=== PATIENT | female | born 1995 | race Caucasian/White ===

== ENCOUNTER 2022-03-07 12:30 | Outpatient (CLI) | payer OTHER, SELFPAY ==
--- NOTE | ~2022-03-07 | US_ITS ---
EXAMINATION: US OB <= 14 weeks fetus DATE: 03/07/2022 12:50 INDICATION: Establish viability and dating of during first trimester TECHNIQUE: Real-time pelvic ultrasound utilizing both a transvaginal and transabdominal probe was pe rformed. The interpreting radiologist was not present for the study. COMPARISON: None. FINDINGS: The uterus measures 12.3 x 8.6 x 8.3 cm. There is an intrauterine gestational sac. A yolk sac and fe max pole are identified. 1.8 x 1.0 x 0.8 cm hypoechoic subchorionic hematoma along the fundal side of the gestational sac.. heart motion is identified measuring 169 beats per minute (bpm) by M-mod e Doppler. The bilateral ovaries are not visualized. There is no free fluid in the pelvis. IMPRESSION: 1. Single living fetus with heart rate of 169 bpm. 2. Small subchorionic hematoma. Reviewed, dictated and finalized at location B.
== END 2022-03-07 12:31 | disposition home or self-care (01) ==
LOC: CHSIMG 12:33
PROVIDERS: PCP Nurse Practitioner Family; Visit Provider Student in an Organized Health Care Education/Training Program
DX: Z34.90 Encounter for supervision of normal pregnancy, unspecified, unspecified trimester (principal)
CPT/HCPCS: 76801

== ENCOUNTER 2022-04-03 06:13 | Emergency (ER) | payer OTHER, SELFPAY ==
[2022-04-03 06:13] VITALS: BP 127/75; PULSE 112; RESP 20; TEMP 36.3; O2SAT 100
[2022-04-03] MEDS: SODIUM CHLORIDE 0.9% IV 1,000 ML 999 ML IV CONT (06:35)
[2022-04-03] MEDS: ONDANSETRON INJ 4 MG/2 ML VIAL IV PUSH (06:43)
[2022-04-03 06:54] LABS: Basophils Absolute Auto 0.02 K/mm3 (0.00-0.10); Basophils Percent Auto 0.1 % (0.0-1.0); Eosinophils Absolute Auto 0.01 K/mm3 (0.02-0.50); Eosinophils Percent Auto 0.1 % (1.0-6.0); Hemoglobin 14.2 g/dL (12.0-15.0); Immature Granulocyte Absolute 0.05 K/mm3 (0.00-0.00); Immature Granulocyte Percent A 0.4 % (0.0-0.0); Lymphocytes Absolute Auto 0.43 K/mm3 (1.10-4.50); Lymphocytes Percent Auto 3.2 % (18.0-42.0); Mean Corpuscular Hemoglobin 28.7 pg (27.0-31.0); Mean Platelet Volume 10.4 fl (9.2-11.8); Monocytes Absolute Auto 0.38 K/mm3 (0.10-0.90); Monocytes Percent Auto 2.8 % (2.0-11.0); Neutrophils Absolute Auto 12.7 K/mm3 (1.7-7.2); Neutrophils Percent Auto 93.4 % (50.0-70.0); Platelet Count Result 266 K/mm3 (150-420); Red Blood Count 4.94 M/mm3 (4.20-5.40); Red Cell Distribution Width 12.5 % (11.6-14.4); White Blood Count 13.6 K/mm3 (4.8-10.8)
[2022-04-03 06:54] LABS: Add Urine Microscopic? YES; Appearance Urine Slightly Cloudy (Clear); Bilirubin Urine Negative (Negative); Blood Urine Negative (Negative); Color Urine Yellow (Yellow); Glucose Urine UA Negative (Negative); Ketones Urine 3+ (Negative); Leukocyte Esterase Ur Negative (Negative); Nitrate Urine Negative (Negative); Protein Urine Trace (Negative); Specific Grav Ur 1.025 (1.010-1.020); Urobilinogen Urine 0.2 mg/dL (0.2-1.0)
[2022-04-03 07:00] LABS: RBC Urine None seen /hpf (0-2); Squamous Epithelial Cell Urine Moderate /hpf (Few); WBC Urine None seen /hpf (0-3)
[2022-04-03 07:01] LABS: Bacteria Urine 1+ /hpf
[2022-04-03 07:10] LABS: Alanine Aminotransferase 33 U/L (14-59); Albumin Level 3.1 g/dL (3.4-5.0); Alkaline Phosphatase 65 U/L (46-116); Anion Gap 10 mmol/L (8-16); Aspartate Amino Transferase 19 U/L (15-37); Bilirubin,Total 0.6 mg/dL (0.00-1.00); Blood Urea Nitrogen 8 mg/dL (7-18); Calcium 9.2 mg/dL (8.5-10.1); Carbon Dioxide 23 mmol/L (21-32); Chloride 102 mmol/L (98-108); Estimated CRCL calculation 109 ml/min; Estimated Glomerular Filt Rate > 60; Glucose 118 mg/dL (70-99); Lipase 89 U/L (73-393); Osmolality Calculated 279 mOsm/kg (285-295); Sodium 135 mmol/L (136-145); Total Protein 7.5 g/dL (6.4-8.2)
--- NOTE | 2022-04-03 07:10 | PC.NURSE ---
RN gave report to Kayla DIXON with pt's NSS running with approximately 300mL left.
--- NOTE | 2022-04-03 07:30 | PC.NURSE ---
iv fluids finished infusing at this time.
--- NOTE | 2022-04-03 07:33 | ED.NAVMDI ---
HPI - Nausea/Vomiting/Diarrhea General Chief complaint: Nausea/Vomiting/Diarrhea Stated complaint: Vomiting/preg Time Seen by Provider: 04/03/22 07:29 History of Present Illness HPI Narrative: 27-year-old female with a history of anxiety / depression, 1st at 16 weeks presents to the ER with a 1 day history of -- nausea with multiple episodes of vomiting. -- Three episodes of diarrhea since this morning. No fever. No abdominal pain. MD elicited complaint: nausea, vomiting and diarrhea Pertinent past history: anorexia Onset (ago): hour(s) ( Started 12 hours ago) Description of vomiting: watery Description of diarrhea: watery Associated nausea: Yes Associated abdominal pain: No Exacerbating factors: none Relieving factors: none Associated symptoms: denies other symptoms Treatment prior to arrival: other ( Zofran) Related Data Allergies Allergy/AdvReac Type Severity Reaction Status Date / Time No Known Allergies Allergy Unknown Verified 04/03/22 07:01 Review of Systems Review of Systems: All systems reviewed & are unremarkable except as noted in HPI and below Constitutional: Constitutional: Reports as per HPI and Reports no additional constitutional complaints Eyes: Eyes: Reports as per HPI and Reports no additional eye complaints ENT: Reports system reviewed and no additional complaints, except as documented and Reports as per HPI Cardiovascular: Cardiovascular: Reports as per HPI and Reports no additional cardiovascular complaints Respiratory: Respiratory: Reports as per HPI and Reports no additional respiratory complaints Gastrointestinal: Gastrointestinal: Reports as per HPI, Reports no additional gastrointestinal complaints, Reports diarrhea, Reports nausea and Reports vomiting Genitourinary: Genitourinary: Reports no additional female genitourinary complaints Musculoskeletal: Musculoskeletal: Reports no additional musculoskeletal complaints Integumentary/Breasts: Skin/Breast: Reports system reviewed and no additional complaints, except as docu and Reports as per HPI Neurologic: Reports system reviewed and no additional complaints, except as documented and Reports as per HPI Psychiatric: Psychiatric: Reports no additional psychiatric complaints and Reports as per HPI Endocrine: Endocrine: Reports no additional endocrine complaints and Reports as per HPI Hematologic/Lymphatic: Hematologic/Lymphatic: Reports no additional hematologic/lymphatic complaints and Reports as per HPI Allergic/Immunologic: Allergic/Immunologic: Reports no additional allergic/immunologic complaints and Reports as per HPI PMF Past Medical History Medical History Anxiety with depression URI (upper respiratory infection) Surgical History Surgical History No significant past surgical history Social History Social History Smoking status: Never smoker Alcohol intake: never Substance use: never Substance use type: does not use Additional occupation/education comments: goes to [employer] Gender identity (if verbalized by the patient): Female Spiritual care concerns: No Exam Const: General: no acute distress and alert Orientation/consciousness: patient oriented x3 HENMT: Head: normal to inspection Eyes: Cornea: corneas normal Pupils: Equal, round and reactive pupils present EOM: EOMs intact bilaterally Neck: Neck: normal visual inspection, no lymphadenopathy and no meningeal signs Chest: Chest palpation & inspection: normal inspection of the chest Resp: Effort & Inspection: normal respiratory effort Auscultation: clear to auscultation bilaterally Cardio: Rate: regular rate Rhythm: regular rhythm GI: GI Palp: Yes Soft to palpation Other: no tenderness/ rigidity /rebound. heart sounds- 153 per minute G
[2022-04-03] MEDS: METOCLOPRAMIDE HCL INJ 10 MG/2 ML VIAL IV PUSH (07:51)
[2022-04-03 08:37] VITALS: BP 124/74; PULSE 105; RESP 16; TEMP 36.9; O2SAT 100
== END 2022-04-03 08:38 | disposition home or self-care (01) ==
PROVIDERS: Emergency Medicine; Emergency Provider Internal Medicine Critical Care Medicine; PCP Nurse Practitioner Family
DX: R11.10 Vomiting, unspecified (principal); Z33.1 Pregnant state, incidental; K52.9 Noninfective gastroenteritis and colitis, unspecified
CPT/HCPCS: 36415; 80053; 81001; 83690; 85025; 96361; 96374; 96375; 99284; J2405; J2765; J7030

== ENCOUNTER 2022-05-06 14:04 | Outpatient (CLI) | payer BC, SELFPAY ==
[2022-05-06 14:31] LABS: Basophils Absolute Auto 0.03 K/mm3 (0.00-0.10); Basophils Percent Auto 0.3 % (0.0-1.0); Eosinophils Absolute Auto 0.15 K/mm3 (0.02-0.50); Eosinophils Percent Auto 1.4 % (1.0-6.0); Hemoglobin 12.2 g/dL (12.0-15.0); Immature Granulocyte Absolute 0.11 K/mm3 (0.00-0.00); Lymphocytes Percent Auto 15.3 % (18.0-42.0); Mean Corpuscular Hemoglobin 29.1 pg (27.0-31.0); Mean Corpuscular Volume 88.3 fL (78.0-102.0); Mean Platelet Volume 10.3 fl (9.2-11.8); Monocytes Absolute Auto 0.71 K/mm3 (0.10-0.90); Monocytes Percent Auto 6.4 % (2.0-11.0); Neutrophils Absolute Auto 8.4 K/mm3 (1.7-7.2); Neutrophils Percent Auto 75.6 % (50.0-70.0); Platelet Count Result 282 K/mm3 (150-420); Red Blood Count 4.19 M/mm3 (4.20-5.40); Red Cell Distribution Width 12.7 % (11.6-14.4); White Blood Count 11.1 K/mm3 (4.8-10.8)
[2022-05-06 15:38] LABS: Thyroid Stimulating Hormone 0.48 uIU/mL (0.36-3.74)
[2022-05-09 13:04] LABS: Hepatitis C Signal to Cutoff 0.01 ratio (<1.00); Hepatitis C Virus Antibody Nonreactive (Nonreactive)
[2022-05-09 13:31] LABS: Vitamin D 25 Hydroxy 30 ng/mL (30-100)
[2022-05-09 14:49] LABS: RPR Screen Non-Reactive (Non-Reactive)
[2022-05-09 15:55] LABS: Hematocrit 37.9 % (35.0-45.0); Hemoglobin 12.1 g/dL (11.7-15.5); MCH 28.3 pg (27.0-33.0); MCV 88.6 fL (80.0-100.0); RDW 12.7 % (11.0-15.0); Red Blood Cell Count 4.28 Mill/uL (3.80-5.10)
[2022-05-19 18:36] LABS: CF Result NEGATIVE (NEGATIVE); Ethnicity CAUCASIAN
== END 2022-05-06 14:05 | disposition home or self-care (01) ==
LOC: CHSLAB 14:08
PROVIDERS: PCP Nurse Practitioner Family; Visit Provider Student in an Organized Health Care Education/Training Program
DX: Z34.90 Encounter for supervision of normal pregnancy, unspecified, unspecified trimester (principal)
CPT/HCPCS: 36415; 81220; 81243; 82306; 83021; 84443; 85025; 86592; 86787; 86850; 86900; 86901; 87086; 87088

== ENCOUNTER 2022-05-23 12:36 | Outpatient (CLI) | payer BC, SELFPAY ==
[2022-05-23 13:04] LABS: Add Urine Microscopic? YES; Appearance Urine Clear (Clear); Bilirubin Urine Negative (Negative); Blood Urine Negative (Negative); Color Urine Yellow (Yellow); Glucose Urine UA Negative (Negative); Ketones Urine Negative (Negative); Leukocyte Esterase Ur Negative LEU/UL (Negative); Nitrate Urine Negative (Negative); Protein Urine Trace (Negative); Specific Grav Ur >= 1.030 (1.010-1.020)
[2022-05-23 13:09] LABS: RBC Urine 0-2 /hpf (0-2); Squamous Epithelial Cell Urine Many /hpf (Few); WBC Urine 0-3 /hpf (0-3)
[2022-05-23 13:10] LABS: Bacteria Urine 1+ /hpf; Mucus Urine Few /lpf
[2022-05-23 13:32] LABS: Alanine Aminotransferase 22 U/L (14-59); Albumin Level 2.9 g/dL (3.4-5.0); Alkaline Phosphatase 76 U/L (46-116); Anion Gap 10 mmol/L (8-16); Aspartate Amino Transferase 19 U/L (15-37); Bilirubin,Total 0.3 mg/dL (0.00-1.00); Blood Urea Nitrogen 6 mg/dL (7-18); Calcium 9.2 mg/dL (8.5-10.1); Carbon Dioxide 22 mmol/L (21-32); Chloride 105 mmol/L (98-108); Estimated Glomerular Filt Rate > 60; Glucose 94 mg/dL (70-99); Lactate Dehydrogenase 149 U/L (81-234); Osmolality Calculated 281 mOsm/kg (285-295); Potassium 3.8 mmol/L (3.5-5.1); Sodium 137 mmol/L (136-145); Total Protein 6.6 g/dL (6.4-8.2); Uric Acid 3.5 mg/dL (2.6-6.0)
[2022-05-23 13:40] LABS: HIV 1 P24 AG Negative (Negative); HIV 1/2 AB Negative (Negative)
[2022-05-30 12:16] LABS: Hepatitis B Surface Antigen Nonreactive (Nonreactive)
== END 2022-05-23 12:37 | disposition home or self-care (01) ==
LOC: CHSLAB 12:38
PROVIDERS: PCP Nurse Practitioner Family; Visit Provider Student in an Organized Health Care Education/Training Program
DX: O16.2 Unspecified maternal hypertension, second trimester (principal)
CPT/HCPCS: 36415; 80053; 81001; 83615; 84550; 86703

== ENCOUNTER 2022-05-29 08:47 | Observation (INO) | payer BC, SELFPAY ==
[2022-05-29 09:25] VITALS: RESP 18; TEMP 36.5; BMI 37.1
[2022-05-29 09:26] VITALS: BP 111/65; PULSE 84; TEMP 36.5
[2022-05-29 09:42] LABS: Appearance Urine Clear (Clear); Bilirubin Urine Negative (Negative); Blood Urine Negative (Negative); Color Urine Yellow (Yellow); Glucose Urine UA Negative (Negative); Ketones Urine Negative (Negative); Leukocyte Esterase Ur Negative LEU/UL (Negative); Nitrate Urine Negative (Negative); Protein Urine Negative (Negative); Urobilinogen Urine 0.2 mg/dL (<2.0); pH Urine 7.5 (5.0-9.0)
[2022-05-29 09:44] LABS: Add Urine Microscopic? NO
--- NOTE | 2022-05-29 09:47 | OBADM ---
This patient, Kevyn Trevizo, admitted to the OB room 116 at 0847 for observation for lower abdominal cramping. Patient/family oriented to hospital policies and general routines including ID bracelet, bed and alarms, visiting hours, pain management, procedures, bathroom and other care routines, personal items, smoking policy, room service/diet, and visiting hours. Patient/Family are encouraged to report perceived risks to care and to ask questions if they do not understand what they are told or what they should do.
[2022-05-29 10:31] VITALS: BP 115/73; PULSE 89
[2022-05-29 11:01] VITALS: BP 114/61; PULSE 93
--- NOTE | 2022-05-29 18:56 | PC.NURSE ---
Dr. Muniz informed of pt's arrival with c/o cramping on and off for the last 3 weeks, but it woke her at 0400 this morning. Denies vaginal bleeding or leakage of fluid. FHT's with 10 beat accels at 24 wks gestation. Uterine irritability noted. Pt's pain has decreased with PO hydration, rest, and keeping bladder empty. Orders received.
--- NOTE | 2022-06-15 16:42 | P.PNOB_ITS ---
OB - Triage/Final Diagnosis Visit Information Comments/Additional reasons for admission: I have assessed the risk for this patient, Kevyn Slater, and determined that she would benefit from observation care. Evaluation Laboratory results: Laboratory Tests 05/29/22 09:24 Urine Color Yellow Urine Appearance Clear Urine pH 7.5 Ur Specific Penelope 1.020 Urine Protein Negative Urine Glucose (UA) Negative Urine Ketones Negative Ur Blood (Man) Negative Urine Nitrate Negative Urine Bilirubin Negative Urine Urobilinogen 0.2 Leukocyte Esterase Rfl Negative Final Diagnosis (1) Cramping affecting , antepartum: Code(s): O26.899 - Other specified related conditions, unspecified trimester; R10.9 - Unspecified abdominal pain Status: Acute
== END 2022-05-29 11:49 | disposition home or self-care (01) ==
PROVIDERS: Admitting Provider Student in an Organized Health Care Education/Training Program; PCP Nurse Practitioner Family; Visit Provider Student in an Organized Health Care Education/Training Program
DX: O26.892 Other specified pregnancy related conditions, second trimester (principal); R10.9 Unspecified abdominal pain; Z3A.24 24 weeks gestation of pregnancy
CPT/HCPCS: 81003; G0378; G0379

== ENCOUNTER 2022-06-17 13:14 | Outpatient (CLI) | payer BC, SELFPAY ==
[2022-06-17 14:56] LABS: Basophils Absolute Auto 0.1 K/mm3 (0.0-0.1); Basophils Percent Auto 0.3 % (0.2-1.2); Eosinophils Absolute Auto 0.1 K/mm3 (0-0.3); Eosinophils Percent Auto 0.7 % (0-4.4); Hematocrit 36.1 % (37.0-47.0); Hemoglobin 12.2 g/dL (12.0-15.0); Immature Granulocyte Absolute 0.26 K/mm3 (0.00-0.031); Immature Granulocyte Percent A 1.7 % (0-0.5); Lymphocytes Absolute Auto 1.77 K/mm3 (0.9-3.2); Lymphocytes Percent Auto 11.7 % (18.3-44.2); Mean Corpuscular HGB Conc 33.8 g/dl (32-36); Mean Corpuscular Hemoglobin 29.6 pg (26-34); Mean Corpuscular Volume 87.6 fl (80-100); Mean Platelet Volume 10.3 fl (7.4-10.4); Monocytes Absolute Auto 0.9 K/mm3 (0.1-0.6); Monocytes Percent Auto 6.2 % (2.6-8.5); Neutrophils Percent Auto 79.4 % (45.5-73.1); Platelet Count Result 289 k/mm3 (150-375); Red Blood Count 4.12 M/mm3 (4.2-5.4); Red Cell Distribution Width 13.2 % (11.5-14.5); White Blood Count 15.1 K/mm3 (4.5-10.0)
[2022-06-17 15:08] LABS: Glucose 1 Hour PP 50gm Dose 104 mg/dL
[2022-06-17 16:34] LABS: Rubella IgG Antibody 8.8 IU/ML
[2022-06-19] MEDS: RHO(D) IMMUNE GLOBULIN 300 MCG/2 ML SYRINGE IM (14:49)
== END 2022-06-17 13:15 | disposition home or self-care (01) ==
LOC: ANHLAB 13:15
PROVIDERS: PCP Nurse Practitioner Family; Visit Provider Student in an Organized Health Care Education/Training Program
DX: Z34.02 Encounter for supervision of normal first pregnancy, second trimester (principal)
CPT/HCPCS: 36415; 82947; 85025; 85461; 86762; 86850; 86900; 86901; 87086; 90384; 96372; J2790

== ENCOUNTER 2022-08-16 15:39 | Outpatient (CLI) | payer SELFPAY ==
[2022-08-16 15:52] LABS: Basophils Absolute Auto 0.05 K/mm3 (0.00-0.10); Basophils Percent Auto 0.4 % (0.0-1.0); Eosinophils Absolute Auto 0.14 K/mm3 (0.02-0.50); Hematocrit 35.2 % (35.0-49.0); Hemoglobin 11.3 g/dL (12.0-15.0); Immature Granulocyte Absolute 0.24 K/mm3 (0.00-0.00); Immature Granulocyte Percent A 1.8 % (0.0-0.0); Lymphocytes Absolute Auto 1.71 K/mm3 (1.10-4.50); Lymphocytes Percent Auto 12.6 % (18.0-42.0); Mean Corpuscular HGB Conc 32.1 g/dL (32.0-36.0); Mean Corpuscular Hemoglobin 28.3 pg (27.0-31.0); Mean Platelet Volume 10.5 fl (9.2-11.8); Monocytes Absolute Auto 0.97 K/mm3 (0.10-0.90); Monocytes Percent Auto 7.1 % (2.0-11.0); Neutrophils Absolute Auto 10.5 K/mm3 (1.7-7.2); Neutrophils Percent Auto 77.1 % (50.0-70.0); Platelet Count Result 265 K/mm3 (150-420); White Blood Count 13.6 K/mm3 (4.8-10.8)
[2022-08-16 16:44] LABS: HIV 1 P24 AG Negative (Negative); HIV 1/2 AB Negative (Negative)
[2022-08-19 17:43] LABS: RPR Screen Non-Reactive (Non-Reactive)
== END 2022-08-16 15:40 | disposition home or self-care (01) ==
LOC: CHSLAB 15:42
PROVIDERS: PCP Nurse Practitioner Family; Visit Provider Student in an Organized Health Care Education/Training Program
DX: Z34.03 Encounter for supervision of normal first pregnancy, third trimester (principal)
CPT/HCPCS: 36415; 85025; 86592; 86703

== ENCOUNTER 2022-08-31 19:28 | Observation (INO) | payer SELFPAY ==
[2022-08-31] VITALS (8 sets, daily range): BP systolic 109–150; BP diastolic 56–93; PULSE 89–103; BMI 36.6
[2022-08-31 21:03] LABS: Basophils Absolute Auto 0.1 K/mm3 (0.0-0.1); Basophils Percent Auto 0.4 % (0.2-1.2); Eosinophils Absolute Auto 0.2 K/mm3 (0-0.3); Eosinophils Percent Auto 1.6 % (0-4.4); Hematocrit 35.8 % (37.0-47.0); Hemoglobin 11.5 g/dL (12.0-15.0); Immature Granulocyte Absolute 0.17 K/mm3 (0.00-0.031); Immature Granulocyte Percent A 1.4 % (0-0.5); Lymphocytes Absolute Auto 1.61 K/mm3 (0.9-3.2); Mean Corpuscular HGB Conc 32.1 g/dl (32-36); Mean Corpuscular Hemoglobin 28.4 pg (26-34); Mean Corpuscular Volume 88.4 fl (80-100); Mean Platelet Volume 10.1 fl (7.4-10.4); Monocytes Percent Auto 8.2 % (2.6-8.5); Neutrophils Absolute Auto 9.4 K/mm3 (1.3-6.7); Neutrophils Percent Auto 75.4 % (45.5-73.1); Platelet Count Result 256 k/mm3 (150-375); Red Blood Count 4.05 M/mm3 (4.2-5.4); Red Cell Distribution Width 13.3 % (11.5-14.5); White Blood Count 12.4 K/mm3 (4.5-10.0)
[2022-08-31 21:04] LABS: Appearance Urine Clear (Clear); Bilirubin Urine Negative (Negative); Blood Urine Negative (Negative); Color Urine Yellow (Yellow); Glucose Urine UA Negative (Negative); Ketones Urine Negative (Negative); Leukocyte Esterase Ur Negative LEU/UL (NEGATIVE); Nitrate Urine Negative (Negative); Protein Urine Negative (Negative); Urobilinogen Urine 0.2 mg/dL (<2.0); pH Urine 6.5 (5.0-9.0)
[2022-08-31 21:07] LABS: Add Urine Microscopic? NO; Bacteria Urine Trace /hpf; RBC Urine 0-2 /hpf (0-2); Squamous Epithelial Cell Urine Occasional /hpf (Few); WBC Urine 0-3 /hpf (0-3)
[2022-08-31 21:10] LABS: Creatinine Urine 45.6 mg/dL
[2022-08-31 21:12] LABS: Alanine Aminotransferase 18 U/L (6-35); Albumin Level 3.8 g/dL (3.5-5.1); Alkaline Phosphatase 168 U/L (38-126); Anion Gap 9 mmol/L (8-16); Aspartate Amino Transferase 19 U/L (14-36); Bilirubin,Total 0.4 mg/dL (0.2-1.3); Blood Urea Nitrogen 5 mg/dL (7-17); Calcium 9.1 mg/dL (8.4-10.2); Carbon Dioxide 22 mmol/L (22-30); Chloride 107 mmol/L (98-107); Estimated Glomerular Filt Rate > 60; Glucose 91 mg/dL (65-110); Potassium 3.5 mmol/L (3.4-5.0); Sodium 138 mmol/L (137-145); Uric Acid 3.4 mg/dL (2.5-7.5)
[2022-08-31 22:17] LABS: Total Protein Urine Random 13 mg/dL; Ur Ttl Prot Creatinine Ratio 0.29 mg/mg (0-0.20)
--- NOTE | 2022-08-31 22:26 | OBADM ---
This patient, Kevyn Slater, admitted to the OB room Labor/Delivery/Recovery 106 for observation. Patient/family oriented to hospital policies and general routines including ID bracelet, bed and alarms, visiting hours, pain management, procedures, bathroom and other care routines, personal items, smoking policy, room service/diet, and visiting hours. Patient/Family are encouraged to report perceived risks to care and to ask questions if they do not understand what they are told or what they should do.
--- NOTE | 2022-10-02 10:20 | PM.OBTRLD ---
OB - Triage/Final Diagnosis Visit Information Comments/Additional reasons for admission: I have assessed the risk for this patient, Kevyn Slater, and determined that she would benefit from observation care. Evaluation Laboratory results: Laboratory Tests 08/31/22 08/31/22 08/31/22 20:48 20:48 20:48 WBC 12.4 H RBC 4.05 L Hgb 11.5 L Hct 35.8 L MCV 88.4 MCH 28.4 MCHC 32.1 RDW 13.3 Plt Count 256 MPV 10.1 Immature Gran % (Auto) 1.4 H Neut % (Auto) 75.4 H Lymph % (Auto) 13.0 L [place] % (Auto) 8.2 Eos % (Auto) 1.6 Baso % (Auto) 0.4 Lymph # (Auto) 1.61 [place] # (Auto) 1.0 H Eos # (Auto) 0.2 Baso # (Auto) 0.1 Abs Immat Gran (auto) 0.17 H Absolute Neuts (auto) 9.4 H Absolute Nucleated RBC 0.0 Nucleated RBC % 0.0 Sodium Potassium Chloride Carbon Dioxide Anion Gap BUN Creatinine Estim Creat Clear Calc Estimated GFR Glucose Uric Acid Calcium Total Bilirubin AST ALT Alkaline Phosphatase Total Protein Albumin Urine Color Yellow Urine Appearance Clear Urine pH 6.[address] [place] 1.010 Urine Protein Negative Urine Glucose (UA) Negative Urine Ketones Negative Ur Blood (Man) Negative Urine Nitrate Negative Urine Bilirubin Negative Urine Urobilinogen 0.2 Ur Leukocyte Esterase Negative Urine RBC 0-2 Urine WBC 0-3 Ur Squamous Epith Cells Occasional Urine Bacteria Trace U Random Total Protein 13 Urine Creatinine 45.6 Protein/Creat Ratio 2 0.29 H 08/31/22 20:48 WBC RBC Hgb Hct MCV MCH MCHC RDW Plt Count MPV Immature Gran % (Auto) Neut % (Auto) Lymph % (Auto) [place] % (Auto) Eos % (Auto) Baso % (Auto) Lymph # (Auto) [place] # (Auto) Eos # (Auto) Baso # (Auto) Abs Immat Gran (auto) Absolute Neuts (auto) Absolute Nucleated RBC Nucleated RBC % Sodium 138 Potassium 3.5 Chloride 107 Carbon Dioxide 22 Anion Gap 9 BUN 5 L Creatinine 0.60 L Estim Creat Clear Calc Not Reportable Estimated GFR > 60 Glucose 91 Uric Acid 3.4 Calcium 9.1 Total Bilirubin 0.4 AST 19 ALT 18 Alkaline Phosphatase 168 H Total Protein 7.0 Albumin 3.8 Urine Color Urine Appearance Urine pH Ur Specific [place] Urine Protein Urine Glucose (UA) Urine Ketones Ur Blood (Man) Urine Nitrate Urine Bilirubin Urine Urobilinogen Ur Leukocyte Esterase Urine RBC Urine WBC Ur Squamous Epith Cells Urine Bacteria U Random Total Protein Urine Creatinine Protein/Creat Ratio 2 Final Diagnosis (1) False labor: Code(s): O47.9 - False labor, unspecified Status: Acute
== END 2022-08-31 22:45 | disposition home or self-care (01) ==
PROVIDERS: Admitting Provider Student in an Organized Health Care Education/Training Program; PCP Nurse Practitioner Family; Visit Provider Obstetrics & Gynecology
DX: O9A.219 Injury, poisoning and certain other consequences of external causes complicating pregnancy, unspecified trimester (principal); Z3A.00 Weeks of gestation of pregnancy not specified; R10.9 Unspecified abdominal pain; T14.90XA Injury, unspecified, initial encounter
CPT/HCPCS: 36415; 80053; 81003; 82570; 84156; 84550; 85025; 87086; 87088; G0378; G0379

== ENCOUNTER 2022-09-01 20:21 | Outpatient (NON) | payer SELFPAY ==
[2022-09-01 20:27] VITALS: BMI 36.6
[2022-09-01 20:46] LABS: Total Volume 24 Hour Urine 1400 ml
[2022-09-01 20:47] LABS: Total Volume 24 Hour Urine 1400 ml
[2022-09-01 20:53] LABS: Total Protein Urine 24 Hr 126 mg/24hr (28-141); Total Protein Urine Random 9 mg/dL
[2022-09-01 20:55] LABS: Creatinine 24 Hour Urine 1.2 gm/24 (0.8-1.8); Creatinine Urine 88.3 mg/dL
== END 2022-09-01 20:22 | disposition home or self-care (01) ==
LOC: ANHOBOP 20:22
PROVIDERS: Student in an Organized Health Care Education/Training Program; PCP Nurse Practitioner Family; Visit Provider Obstetrics & Gynecology
DX: O16.2 Unspecified maternal hypertension, second trimester (principal); Z3A.00 Weeks of gestation of pregnancy not specified
CPT/HCPCS: 81050; 82570; 84156

== ENCOUNTER 2022-09-06 15:28 | Outpatient (CLI) | payer BC, SELFPAY ==
[2022-09-06 16:30] VITALS: BP 114/76; PULSE 93
== END 2022-09-06 16:30 | disposition home or self-care (01) ==
LOC: ANHOBOP 16:26 → ANHLDR 16:32
PROVIDERS: PCP Nurse Practitioner Family; Visit Provider Student in an Organized Health Care Education/Training Program
DX: O41.8X90 Other specified disorders of amniotic fluid and membranes, unspecified trimester, not applicable or unspecified (principal); Z3A.00 Weeks of gestation of pregnancy not specified
CPT/HCPCS: 59025; 84112; 99199

== ENCOUNTER 2022-09-09 16:27 | Inpatient (IN) | payer BC, SELFPAY ==
[2022-09-09] VITALS (11 sets, daily range): BP systolic 109–151; BP diastolic 67–104; PULSE 90–113; TEMP 36.4–36.7; BMI 38.4
--- NOTE | 2022-09-09 17:14 | LDADM ---
This patient, Kevyn Slater, was admitted to Labor/Delivery/Recovery 104 on 09/09/22 at 16:27. Plans for labor, pain management and were discussed with patient. Patient/family oriented to hospital policies and general routines including ID bracelet, bed and alarms, visiting hours, pain management, procedures, bathroom and other care routines, personal items, smoking policy, room service/diet and guest tray routines, security routines, and visiting hours. Patient/Family are encouraged to report perceived risks to care and to ask questions if they do not understand what they are told or what they should do. See OBIX for further documentation.
[2022-09-09 17:48] LABS: Basophils Percent Auto 0.2 % (0.2-1.2); Eosinophils Absolute Auto 0.1 K/mm3 (0-0.3); Eosinophils Percent Auto 0.7 % (0-4.4); Hematocrit 38.5 % (37.0-47.0); Hemoglobin 12.5 g/dL (12.0-15.0); Immature Granulocyte Absolute 0.16 K/mm3 (0.00-0.031); Immature Granulocyte Percent A 1.1 % (0-0.5); Lymphocytes Absolute Auto 1.57 K/mm3 (0.9-3.2); Lymphocytes Percent Auto 11.2 % (18.3-44.2); Mean Corpuscular HGB Conc 32.5 g/dl (32-36); Mean Corpuscular Hemoglobin 28.2 pg (26-34); Mean Corpuscular Volume 86.7 fl (80-100); Mean Platelet Volume 10.6 fl (7.4-10.4); Monocytes Absolute Auto 0.8 K/mm3 (0.1-0.6); Monocytes Percent Auto 5.8 % (2.6-8.5); Neutrophils Absolute Auto 11.4 K/mm3 (1.3-6.7); Platelet Count Result 274 k/mm3 (150-375); Red Blood Count 4.44 M/mm3 (4.2-5.4); Red Cell Distribution Width 13.8 % (11.5-14.5); White Blood Count 14.1 K/mm3 (4.5-10.0)
--- NOTE | 2022-09-09 18:18 | WPDANESEPP ---
Anes - Eval Pre Procedure Procedure: LAbor epidural Date/Time: 09/09/22 18:18 Surgeon: Flavio Preop Diagnosis: Abd pain with contractions Pre Op Diagnosis: Induction of Labor Patient Data Age: 27 Gender: F Height: 1.68 m Weight: 108 kg Last Vital Signs Pulse 100 09/09/22 18:16 BP 146/88 H 09/09/22 18:16 O2 Del Method Room Air 09/09/22 17:12 Allergies Allergy/AdvReac Type Severity Reaction Status Date / Time No Known Allergies Allergy Unknown Verified 09/04/22 14:11 Home Medications Medication Instructions Recorded Confirmed Type vit no.95-ferrous 1 tablet PO DAILY 05/29/22 09/09/22 History fumarate 28 mg-folic acid 800 mcg tablet () Laboratory Tests 09/09/22 09/09/22 17:09 17:10 WBC 14.1 K/mm3 H K/mm3 (4.5-10.0) RBC 4.44 M/mm3 M/mm3 (4.2-5.4) Hgb 12.5 g/dL g/dL (12.0-15.0) Hct 38.5 % % (37.0-47.0) MCV 86.7 fl fl (80-100) MCH 28.2 pg pg (26-34) MCHC 32.5 g/dl g/dl (32-36) RDW 13.8 % % (11.5-14.5) Plt Count 274 k/mm3 k/mm3 (150-375) MPV 10.6 fl H fl (7.4-10.4) Immature Gran % (Auto) 1.1 % H % (0-0.5) Neut % (Auto) 81.0 % H % (45.5-73.1) Lymph % (Auto) 11.2 % L % (18.3-44.2) Elliott % (Auto) 5.8 % % (2.6-8.5) Eos % (Auto) 0.7 % % (0-4.4) Baso % (Auto) 0.2 % % (0.2-1.2) Lymph # (Auto) 1.57 K/mm3 K/mm3 (0.9-3.2) Elliott # (Auto) 0.8 K/mm3 H K/mm3 (0.1-0.6) Eos # (Auto) 0.1 K/mm3 K/mm3 (0-0.3) Baso # (Auto) 0.0 K/mm3 K/mm3 (0.0-0.1) Abs Immat Gran (auto) 0.16 K/mm3 H K/mm3 (0.00-0.031) Absolute Neuts (auto) 11.4 K/mm3 H K/mm3 (1.3-6.7) Absolute Nucleated RBC 0.0 K/mm3 K/mm3 (0.0-0.012) Nucleated RBC % 0.0 % % (0.0-0.2) RPR Pending Patient hx anesthesia problems: none Family hx anesthesia problems: none Results Review: All pre-operative results and documents have been reviewed as part of the pre-operative evaluation. [facility] Past Medical History Medical History Anxiety with depression Chlamydia contact, treated Migraines Morbid obesity and not yet delivered URI (upper respiratory infection) Surgical History Surgical History No significant past surgical history Family History Family History Other Patient denies significant medical history Social History Social History Smoking status: Never smoker Alcohol intake: never Substance use: never Substance use type: does not use Additional occupation/education comments: goes to [employer] Gender identity (if verbalized by the patient): Female Spiritual care concerns: No Exam Day of Procedure 09/09/22 18:18 Patient weight: morbidly obese Airway: Mallampati scale class II
[2022-09-09] MEDS: DINOPROSTONE 10 MG VAG INSERT VAGINAL (18:29)
[2022-09-10] VITALS (184 sets, daily range): BP systolic 99–168; BP diastolic 43–114; PULSE 71–157; RESP 18; TEMP 36.2–37.2; O2SAT 96–100
[2022-09-10] MEDS: ONDANSETRON INJ 4 MG/2 ML VIAL IV PUSH ×2 (03:36→09:18)
[2022-09-10] MEDS: LACTATED RINGERS 1,000 ML 125 ML IV CONT ×3 (07:08→12:17)
[2022-09-10] MEDS: OXYTOCIN 30 UNITS/NS 500 ML 30 UNITS/500 ML BAG 6 UNITS IV CONT (07:08)
[2022-09-10 09:21] LABS: Rapid Plasma Reagin Non-Reactive (NonReactive)
--- NOTE | 2022-09-10 10:07 | PM.IMHP ---
H&P: HPI History of Present Illness Date/Time: 09/10/22 10:07 Chief Complaint: elective induction of labor Narrative: Patient is a 27-year-old LMP 12/10/2021 currently 39 weeks 1 day gestation with NELL 09/16/2022 who presented to labor and delivery on the evening of 09/09/2022 at 39 weeks gestation for scheduled elective induction of labor. In general, patient doing well. Reports occasional contractions. Denies any vaginal bleeding or leakage of fluid. Reports good movement. Review of Systems Review of Systems: All systems reviewed & are unremarkable except as noted in HPI and below Constitutional: Constitutional: Reports as per HPI and Reports no additional constitutional complaints Eyes: Eyes: Reports no additional eye complaints ENT: Reports system reviewed and no additional complaints, except as documented and Reports as per HPI Cardiovascular: Cardiovascular: Reports as per HPI and Reports no additional cardiovascular complaints Respiratory: Respiratory: Reports as per HPI and Reports no additional respiratory complaints Gastrointestinal: Gastrointestinal: Reports as per HPI and Reports no additional gastrointestinal complaints Genitourinary: Genitourinary: Reports no additional female genitourinary complaints and Reports as per HPI Musculoskeletal: Musculoskeletal: Reports no additional musculoskeletal complaints and Reports as per HPI Integumentary/Breasts: Skin/Breast: Reports system reviewed and no additional complaints, except as docu and Reports as per HPI Neurologic: Reports system reviewed and no additional complaints, except as documented and Reports as per HPI Psychiatric: Psychiatric: Reports no additional psychiatric complaints and Reports as per HPI Endocrine: Endocrine: Reports no additional endocrine complaints and Reports as per HPI Hematologic/Lymphatic: Hematologic/Lymphatic: Reports no additional hematologic/lymphatic complaints and Reports as per HPI Allergic/Immunologic: Allergic/Immunologic: Reports no additional allergic/immunologic complaints and Reports as per HPI PMFSH Past Medical History Medical History Anxiety with depression Chlamydia contact, treated Migraines Morbid obesity and not yet delivered URI (upper respiratory infection) Surgical History Surgical History No significant past surgical history Family History Family History Other Patient denies significant medical history Social History Social History Smoking status: Never smoker Alcohol intake: never Substance use: never Substance use type: does not use Additional occupation/education comments: goes to [employer] Gender identity (if verbalized by the patient): Female Spiritual care concerns: No Meds Home Medications and Allergies Home Medications Medication Instructions Recorded Confirmed Type vit no.95-ferrous 1 tablet PO DAILY 05/29/22 09/09/22 History fumarate 28 mg-folic acid 800 mcg tablet () Allergies Allergy/AdvReac Type Severity Reaction Status Date / Time No Known Allergies Allergy Unknown Verified 09/04/22 14:11 Vital Signs Vital Signs - 24 hr 09/09/22 17:08 09/09/22 17:15 09/09/22 17:46 Temperature Pulse Rate 90 101 H 97 Blood Pressure 125/85 120/76 136/87 Pulse Oximetry Oxygen Delivery 09/09/22 18:01 09/09/22 18:16 09/09/22 18:31 Temperature Pulse Rate 95 100 99 Blood Pressure 148/83 H 146/88 H 148/86 H Pulse Oximetry Oxygen Delivery 09/09/22 19:01 09/09/22 18:56 09/09/22 19:31 Temperature 36.7 C Pulse Rate 108 H 113 H Blood Pressure 151/104 H 109/67 Pulse Oximetry Oxygen Delivery 09/09/22 20:00 09/09/22 20:37 09/10/22 00:36 [place]
--- NOTE | 2022-09-10 10:08 | P.PNOB_ITS ---
Pain Control Date/time seen: 09/10/22 10:08 Patient doing well. Comfortable s/p epidural. SVE 2. AROM performed, clear fluid noted. EFM category 1. [place] shows irregular contractions, however, difficult to see contractions on toco, particularly while patient in lateral position. IUPC placed for enhanced monitoring. Continue pitocin.
--- NOTE | 2022-09-10 10:30 | WPDHPUPDATE1 ---
History and Physical Update Update Date/Time: 09/10/22 10:30 History and Physical has been reviewed, including an updated exam of the patient. There are NO changes in the patient's condition. Risks, benefits, and alternatives have been discussed and questions answered. Patient agrees to proceed with procedure.
[2022-09-10] MEDS: SODIUM CHLORIDE 0.9% IV 300 ML 600 ML I-UTERINE (14:42)
--- NOTE | 2022-09-10 17:28 | PM.OBPRVD ---
OB - Delivery Note Procedure Delivery date: 09/10/22 Procedure: Patient is a 27-year-old now who presented to labor and delivery on the evening of 09/09/2022 for a scheduled elective induction of labor at 39 weeks gestation. Patient was admitted to labor and delivery. Initial cervical exam was approximately 1 cm dilated. Induction of labor was started with Cervidil. Cervidil was placed remained in place for approximately 12 hours after which it was removed. Pitocin was started for labor augmentation. Patient became uncomfortable and requested an epidural for pain management, which was placed without difficulty. Artificial rupture of membranes was performed at 10:03 a.m. Clear amniotic fluid was noted. An IUPC was placed for enhanced monitoring. Patient continued to make progressive cervical change. Recurrent variable decelerations were noted on EFM. Amnioinfusion was started with resolution of decelerations. Patient continued to progress and was noted to be fully dilated at 4:30 p.m. Patient was encouraged to push and found to be pushing well. MD was notified and was en route, however, infant delivered spontaneously one minute prior to MD arrival. Upon entering room, infant was on maternal abdomen crying spontaneously. was being attended to by awaiting nursing staff. Delayed cord clamping was performed for approximately 2 minutes. Cord was clamped and cut. A segment of cord was collected for cord gases. Cord blood was collected. The placenta was delivered spontaneously and intact. Uterine fundus was noted to be firm with massage. Straight catheterization was performed with return a minimal amount of clear urine. On inspection, a superficial first-degree perineal laceration as well as superficial bilateral periurethral lacerations were noted. These lacerations were repaired with 3-0 Vicryl in the usual fashion. Excellent hemostasis was noted. Estimated blood loss for entire delivery was 150 cc. was a live-born male , Apgars 9 and 9, weighing 6 lbs. 9 oz. Both mother and baby doing well at end of delivery. Events: Elective Induction of Labor Intrapartal Events: Decelerations (variable) Induction method: Per Cervidil Protocol Delivery augmentation: Rupture of Membranes and Pitocin Delivery monitor: External FHT, External Uterine and Internal Uterine Route of delivery: Laceration Description: Periurethral (bilateral) and Perineal - 1st Degree Delivery repair: vicryl (3-0) Specimen: Yes (cord blood and cord gases) Quantitative Blood Loss (ml): 150 Anesthesia type: Epidural Disposition: Floor Complications: No immediate complications Baby Date of : 09/10/22 Time of : 17:00 Weeks of gestation at delivery: 39 (39.1) Infant gender: Male Weight (pounds): 6 Weight (ounces): 9 presentation: vertex Placenta delivery description: Spontaneous Cord Vessel Description: 3 Vessels and Delayed Cord Clamping (120 seconds) score one minute: 9 score five minutes: 9 AMG Delivery Billing Delivery Delivery: Delivery Charge
[2022-09-10] MEDS: BENZOCAINE 20% AER SPR (*SP) 56 GM CAN 1 SPRAY TOPICAL (19:32)
[2022-09-10] MEDS: WITCH HAZEL 40 PADS 1 PAD TOPICAL (19:33)
--- NOTE | 2022-09-10 19:59 | PC.NURSE ---
Patient transferred to post room #286 per wheelchair from labor and delivery. Support person present. Oriented to unit, room, information board, rooming in, admission packet and security measures. Patient verbalizes understanding.
[2022-09-11 00:20] VITALS: BP 102/57; PULSE 81; RESP 18; TEMP 36.8
[2022-09-11] MEDS: IBUPROFEN 600 MG TABLET PO ×3 (00:41→15:23)
[2022-09-11 04:20] VITALS: BP 88/50; PULSE 72; RESP 16; TEMP 36.5
[2022-09-11 04:43] LABS: Hematocrit 31.1 % (37.0-47.0); Hemoglobin 10.2 g/dL (12.0-15.0)
[2022-09-11 07:30] VITALS: BP 103/53; PULSE 94; RESP 18; TEMP 36.4; O2SAT 100
--- NOTE | 2022-09-11 07:55 | PC.NURSE ---
PT introductions made and plan of care discussed per post , pain management, bottle feeding, daily care activities. PT sole recipient of such instructions and received instructions per one to one discussion, mom baby care guide, and demonstrations this shift. PT shows no barriers to learning and verbalized understanding of such care.
--- NOTE | 2022-09-11 08:39 | PM.OBPNVD ---
OB - PN: Subj Subjective Date/time seen: 09/11/22 08:39 Doing well. Reports mild nausea this AM. Denies significant pain or cramping. Well controlled with medication. Minimal-moderate lochia. Ambulating without difficulty. Voiding well. OB - PN: Obj Data Labs CBC & Chem 7: 09/11/22 04:33 Labs: Laboratory Results - last 24 hr 09/09/22 09/11/22 09/11/22 17:10 04:33 04:33 Hgb 10.2 L Hct 31.1 L RPR Non-reactive Blood Type A Negative Antibody Screen Negative Screen Negative Baby's Blood Type A pos Baby's MIHIR Negative Doses of RhIg Required 1 OB - PN A/P Assessment and Plan (1) Normal spontaneous vaginal delivery: Code(s): O80 - Encounter for full-term uncomplicated delivery Status: Acute Assessment and Plan: PPD#1 doing well continue routine care anticipate dc home tomorrow Time Spent With Patient Time: Total time spent is greater than 50% in coordination of care (as documented) at patient's floor/unit and/or counseling patient: Review of Systems Review of Systems: All systems reviewed & are unremarkable except as noted in HPI and below Exam Const: General: cooperative, healthy appearing, comfortable and no acute distress GI: Inspection: non-distended GI Palp: Yes Soft to palpation and No Tenderness to palpation present (GI) Other: fundus firm below umbilicus Extrem: Right lower extremity: no edema Left lower extremity: no edema Other: no calf tenderness
--- NOTE | 2022-09-11 08:45 | WPDANESPN ---
Anes - Prog Note Post-Op Date/Time: 09/11/22 08:45 Cardiovascular status: normal Respiratory status: normal Airway patency: baseline Mental status: baseline Post-Op hydration status: normal Vital Signs: Last Vital Signs Temp 36.5 C 09/11/22 04:20 Pulse 72 09/11/22 04:20 Resp 16 09/11/22 04:20 BP 88/50 L 09/11/22 04:20 Pulse Ox 100 09/10/22 17:28 O2 Del Method Room Air 09/09/22 17:12 Pain Score (VAS): 0 I/O: Intake & Output 09/10/22 09/11/22 09/11/22 23:59 07:59 15:59 Intake Total 1000 Output Total 203 Balance 797 Laboratory Tests 09/11/22 04:33 09/09/22 09/11/22 09/11/22 17:10 04:33 04:33 Hgb 10.2 L Hct 31.1 L RPR Non-reactive Blood Type A Negative Antibody Screen Negative Screen Negative Baby's Blood Type A pos Baby's MIHIR Negative Doses of RhIg Required 1 Post-procedural complaints: none Patient Feedback: Patient satisfied with anesthetic care.
[2022-09-11] MEDS: DOCUSATE SODIUM 100 MG CAPSULE PO ×2 (09:43→15:23)
[2022-09-11 09:45] VITALS: PULSE 94; RESP 18; O2SAT 100
[2022-09-11 12:00] VITALS: BP 105/63; PULSE 74; RESP 16; TEMP 36.4; O2SAT 100
[2022-09-11] MEDS: RHO(D) IMMUNE GLOBULIN 300 MCG/2 ML SYRINGE IM (15:24)
[2022-09-11 20:10] VITALS: BP 106/65; PULSE 74; RESP 18; TEMP 36.4
--- NOTE | 2022-09-12 05:00 | PC.NURSE ---
Patient viewed the discharge video Mother & Baby Care, The First Two Weeks . Patient was given the opportunity and encouraged to ask questions. Patient verbalized understanding of information shared and has been given the mother/baby guide for home reference.
--- NOTE | 2022-09-12 07:30 | PC.NURSE ---
PT introductions made and plan of care discussed per post , pain management, bottle feeding, daily care activities and pending discharge to home. PT sole recipient of such instructions and received instructions per one to one discussion, mom baby care guide, and demonstrations this shift. PT shows no barriers to learning and verbalized understanding of such care.
[2022-09-12 07:50] VITALS: BP 111/64; PULSE 64; RESP 16; TEMP 36.4; O2SAT 100
--- NOTE | 2022-09-12 09:11 | PM.OBPNVD ---
OB - PN: Subj Subjective Date/time seen: 09/12/22 09:11 Patient doing well. Denies any significant cramping. Minimal to moderate lochia. Ambulating without difficulty. Voiding well. OB - PN: Obj Data Labs CBC & Chem 7: 09/11/22 04:33 Labs: Laboratory Results - last 24 hr 09/11/22 04:33 Blood Type A Negative Antibody Screen Negative Screen Negative Baby's Blood Type A pos Baby's MIHIR Negative Doses of RhIg Required 1 OB - PN A/P Assessment and Plan (1) Normal spontaneous vaginal delivery: Code(s): O80 - Encounter for full-term uncomplicated delivery Status: Acute Assessment and Plan: PPD#2 doing well dc home in stable condition emergency precautions reviewed f/u in office in 4-6 weeks Time Spent With Patient Time: Total time spent is greater than 50% in coordination of care (as documented) at patient's floor/unit and/or counseling patient: Review of Systems Review of Systems: All systems reviewed & are unremarkable except as noted in HPI and below Exam Const: General: cooperative, healthy appearing, comfortable and no acute distress GI: Inspection: non-distended GI Palp: Yes Soft to palpation and No Tenderness to palpation present (GI) Other: fundus firm below umbilicus Extrem: Right lower extremity: no edema Left lower extremity: no edema Other: no calf tenderness
[2022-09-12 09:15] VITALS: PULSE 64; RESP 16; O2SAT 100
--- NOTE | 2022-09-12 09:16 | PM.OBDSVD ---
DS: Admitting Diagnosis Discharge Date 09/12/22 Admitting Diagnosis IUP at 39w Elective induction of labor DS: Discharge Diagnosis Discharge Diagnosis (1) Normal spontaneous vaginal delivery: Code(s): O80 - Encounter for full-term uncomplicated delivery Status: Acute OB - DS: Summary OB Procedures : None OB Procedures Intrapartum: Spontaneous Vag Delivery OB Procedures: : None Time Spent with Patient Time attestation: Total time spent providing and/or coordinating discharge services: DS: Data Data Completed and Pending Labs on day of discharge: Labs from last 24 hours 09/11/22 04:33 Blood Type A Negative Antibody Screen Negative Screen Negative Baby's Blood Type A pos Baby's MIHIR Negative Doses of RhIg Required 1 Discharge Plan Discharge Attending physician on discharge: Patricia Muniz Discharging Clinician: Patricia Muniz Anticipated Discharge Date/Time: 09/12/22 09:16 Patient Disposition: Home, Self-Care Activity: as tolerated and pelvic rest Diet: regular Discharge Instructions: Call office ([phone]) to schedule a visit in 4-6 weeks. You may take Ibuprofen 600mg every 6 hours as needed for pain. Pain medication may make you constipated. It may be helpful to take an [id number] stool softener, such as Colace and/or Senokot, along with the pain medication to help lessen constipation. Call office or go to ED for pain not controlled with medication, headache, chest pain, shortness of breath, fever, chills, persistent nausea or vomiting, severe abdominal pain, heavy vaginal bleeding >2 pads/hour, foul vaginal discharge or odor, or problems with your breasts. Education: Mom and Baby Guide Given to: Mother Follow-Up: Call your delivering provider's office for an appointment to be seen in: 4 Weeks Mom and baby should come to the [facility] for the follow-up appointment. Appointment Date/Time: September 13, 2022 at 11:00 am What to expect at your follow-up visit: Blood Pressure Check Call [phone] if you are unable to keep your appointment time. BREAST CARE: * Wear a snug supportive bra. * For engorgement discomfort: Bottle Feeding: * May apply ice packs PERINEAL CARE: * Until bleeding stops, use your bhavya bottle after urinating * Change your pad frequently throughout the day * You may take sitz baths several times a day (fill your bathtub with warm water and soak for 20 minutes.) Do NOT bathe in the water * No tub baths until seen by your physician - You may shower ACTIVITY: * Rest as much as possible. * Do not exercise or lift anything heavier than your baby (such as laundry or other children.) * Avoid stairs or driving as much as possible. * Do not put anything into the vagina. No douching, tampons, or sexual activity until seen by physician. NOTIFY PHYSICIAN IF YOU HAVE ANY QUESTIONS OR IF ANY OF THE FOLLOWING SYMPTOMS OCCUR: * If your perineum becomes red, swollen, or more painful than what you have experienced in the hospital. * If your vaginal bleeding becomes foul smelling. * If your vaginal bleeding becomes more heavy than a period or if your bleeding changes from pink to bright red. However, you may pass an occasional walnut-sized clot once or twice for the first week . * If you experience a sharp, shooting pain in you calves. * If you discover a hard, reddened area on your breast or if you experience flu-like symptoms. * If you have a fever of 100.4 or greater DIET: * Eat regular, well-balanced meals. * Drink plenty of fluids daily. If , drink to thirst. Patient Instructions: Antibiotic Form Stand Alone Forms: General Discharge Information Follow-up/Referrals: Patricia Muniz MD [Physician] - Discharge Medications: Continued PNV [id number] [] 28 mg iron- 800 mcg Tablet 1 tablet PO D
--- NOTE | 2022-09-12 11:30 | PC.NURSE ---
PT received discharge instructions per protocol and verbalized understanding of such care.
[2022-09-12] MEDS: IBUPROFEN 600 MG TABLET PO (11:40)
[2022-09-12] MEDS: DOCUSATE SODIUM 100 MG CAPSULE PO (11:40)
--- NOTE | 2022-09-12 11:58 | PC.NURSE ---
PT discharged to home ambulatory accompanied by spouse and and taken to waiting car. follow up appts confirmed
[2022-09-13 11:10] VITALS: BP 115/69; PULSE 69; RESP 20; TEMP 36.6; O2SAT 100
== END 2022-09-12 11:58 | disposition home or self-care (01) | DRG 807 ==
LOC: ANHLDR 16:35 → ANHOB2 09-10 20:05
PROVIDERS: Admitting Provider Student in an Organized Health Care Education/Training Program; PCP Nurse Practitioner Family; Visit Provider Student in an Organized Health Care Education/Training Program
DX: O62.3 Precipitate labor (principal); Z37.0 Single live birth; Z3A.39 39 weeks gestation of pregnancy; O70.0 First degree perineal laceration during delivery; O71.82 Other specified trauma to perineum and vulva; O36.8330 Maternal care for abnormalities of the fetal heart rate or rhythm, third trimester, not applicable or unspecified
CPT/HCPCS: 36415; 59025; 84112; 85014; 85018; 85025; 85461; 86592; 86850; 86900; 86901; 90384; 99199; A9270; J2405; J2590; J2790; J2795; J7030; J7120

== ENCOUNTER 2023-04-03 10:06 | Outpatient (CLI) | payer OTHER, SELFPAY ==
--- NOTE | ~2023-04-03 | US_ITS ---
Pelvic ultrasound. Clinical History: First trimester , evaluate for dates and viability Technique: Realtime transabdominal and transvaginal scanning of the pelvis was performed. Color flow Doppler and Doppler spectral analysis were performed. Findings: The uterus is anteverted, and contains an intrauterine gestation. Hickman-rump length of 5.6 cm corresponds to an estimated gestational age of 12 weeks 1 day. heart rate is 163 bpm.. The right ovary measures 1.8 x 1.8 x 2.6 cm. No significant right ovarian or adnexal mass is seen. The left ovary is not visualized. No significant left ovarian or adnexal mass is seen. There is no evidence of free fluid in the cul de sac. Impression: Live intrauterine gestation with estimated gestational age of 12 weeks 1 day. heart rate is 163 bpm. Sonographic NELL is 10/15/2023. Reviewed, dictated and finalized at [facility]. Impression: Live intrauterine gestation with estimated gestational age of 12 weeks 1 day. F etal heart rate is 163 bpm. Sonographic NELL is 10/15/2023.
== END 2023-04-03 10:07 | disposition home or self-care (01) ==
LOC: CHSIMG 10:08
PROVIDERS: PCP Nurse Practitioner Family; Visit Provider Registered Nurse
DX: Z34.90 Encounter for supervision of normal pregnancy, unspecified, unspecified trimester (principal); Z3A.12 12 weeks gestation of pregnancy
CPT/HCPCS: 76801; 76817

== ENCOUNTER 2023-05-28 15:32 | Outpatient (CLI) | payer OTHER, SELFPAY ==
[2023-05-28 15:52] LABS: Basophils Absolute Auto 0.04 K/mm3 (0.00-0.10); Basophils Percent Auto 0.4 % (0.0-1.0); Eosinophils Absolute Auto 0.14 K/mm3 (0.02-0.50); Eosinophils Percent Auto 1.3 % (1.0-6.0); Hematocrit 38.9 % (35.0-49.0); Hemoglobin 12.9 g/dL (12.0-15.0); Immature Granulocyte Absolute 0.07 K/mm3 (0.00-0.00); Immature Granulocyte Percent A 0.6 % (0.0-0.0); Lymphocytes Absolute Auto 1.51 K/mm3 (1.10-4.50); Lymphocytes Percent Auto 13.7 % (18.0-42.0); Mean Corpuscular HGB Conc 33.2 g/dL (32.0-36.0); Mean Corpuscular Hemoglobin 29.1 pg (27.0-31.0); Mean Corpuscular Volume 87.8 fL (78.0-102.0); Mean Platelet Volume 10.5 fl (9.2-11.8); Monocytes Absolute Auto 0.69 K/mm3 (0.10-0.90); Monocytes Percent Auto 6.2 % (2.0-11.0); Neutrophils Absolute Auto 8.6 K/mm3 (1.7-7.2); Neutrophils Percent Auto 77.8 % (50.0-70.0); Platelet Count Result 266 K/mm3 (150-420); Red Blood Count 4.43 M/mm3 (4.20-5.40); White Blood Count 11.1 K/mm3 (4.8-10.8)
[2023-05-28 15:53] LABS: Appearance Urine Clear (Clear); Bilirubin Urine Negative (Negative); Blood Urine Negative (Negative); Color Urine Yellow (Yellow); Glucose Urine UA Negative (Negative); Ketones Urine Negative (Negative); Leukocyte Esterase Ur 1+ (Negative); Nitrate Urine Negative (Negative); Protein Urine Negative (Negative); Specific Grav Ur 1.025 (1.010-1.020); Urobilinogen Urine 0.2 mg/dL (0.2-1.0)
[2023-05-28 15:58] LABS: Add Urine Microscopic? YES; Bacteria Urine 1+ /hpf; RBC Urine None seen /hpf (0-2); Squamous Epithelial Cell Urine Many /hpf (Few)
[2023-05-28 16:34] LABS: Thyroid Stimulating Hormone 0.79 uIU/mL (0.36-3.74)
[2023-05-28 16:36] LABS: HIV 1 P24 AG Negative (Negative); HIV 1/2 AB Negative (Negative)
[2023-05-31 16:50] LABS: RPR Screen Non-Reactive (Non-Reactive)
[2023-05-31 17:55] LABS: Rubella IgG Antibody 1.24 Index
[2023-06-01 01:59] LABS: Hematocrit 39.2 % (35.0-45.0); Hemoglobin 12.9 g/dL (11.7-15.5); MCV 88.1 fL (80.0-100.0); RDW 13.4 % (11.0-15.0); Red Blood Cell Count 4.45 Mill/uL (3.80-5.10)
[2023-06-01 04:09] LABS: Hepatitis B Surface Antigen Nonreactive (Nonreactive); Hepatitis C Virus Antibody Nonreactive
[2023-06-01 06:43] LABS: Vitamin D 25 Hydroxy 25 ng/mL (30-100)
== END 2023-05-28 15:33 | disposition home or self-care (01) ==
LOC: CHSLAB 15:34
PROVIDERS: PCP Nurse Practitioner Family; Visit Provider Obstetrics & Gynecology
DX: Z34.90 Encounter for supervision of normal pregnancy, unspecified, unspecified trimester (principal)
CPT/HCPCS: 36415; 81001; 82306; 83021; 84443; 85025; 86592; 86703; 86762; 86787; 86803; 86850; 86900; 86901; 87086; 87340

== ENCOUNTER 2023-07-28 13:06 | Outpatient (CLI) | payer OTHER, SELFPAY ==
--- NOTE | 2023-07-28 13:17 | ECG_ITS ---
Measurements Intervals [place] Rate: 67 P: 34 MS: 140 QRS: 15 QRSD: 89 T: 0 QT: 402 QTc: 425 Interpretive Statements SINUS RHYTHM WITHIN NORMAL LIMITS NO PREVIOUS ECG AVAILABLE FOR COMPARISON Electronically Signed On 07-29-2023 12:22:34 CDT by Jeromy Farrell M.D.
[2023-07-28 14:23] LABS: Basophils Absolute Auto 0.04 K/mm3 (0.00-0.10); Basophils Percent Auto 0.4 % (0.0-1.0); Eosinophils Absolute Auto 0.14 K/mm3 (0.02-0.50); Eosinophils Percent Auto 1.3 % (1.0-6.0); Hematocrit 36.6 % (35.0-49.0); Hemoglobin 11.8 g/dL (12.0-15.0); Immature Granulocyte Absolute 0.15 K/mm3 (0.00-0.00); Immature Granulocyte Percent A 1.3 % (0.0-0.0); Lymphocytes Absolute Auto 1.53 K/mm3 (1.10-4.50); Lymphocytes Percent Auto 13.7 % (18.0-42.0); Mean Corpuscular HGB Conc 32.2 g/dL (32.0-36.0); Mean Corpuscular Volume 89.9 fL (78.0-102.0); Mean Platelet Volume 10.7 fl (9.2-11.8); Monocytes Absolute Auto 0.82 K/mm3 (0.10-0.90); Monocytes Percent Auto 7.4 % (2.0-11.0); Neutrophils Absolute Auto 8.5 K/mm3 (1.7-7.2); Neutrophils Percent Auto 75.9 % (50.0-70.0); Platelet Count Result 260 K/mm3 (150-420); Red Blood Count 4.07 M/mm3 (4.20-5.40); Red Cell Distribution Width 12.4 % (11.6-14.4); White Blood Count 11.1 K/mm3 (4.8-10.8)
[2023-07-28 15:15] LABS: Glucose 1 Hour PP 50gm Dose 89 mg/dL (70-130)
== END 2023-07-28 13:07 | disposition home or self-care (01) ==
PROVIDERS: PCP Nurse Practitioner Family; Visit Provider Registered Nurse
DX: Z34.92 Encounter for supervision of normal pregnancy, unspecified, second trimester (principal); R07.9 Chest pain, unspecified
CPT/HCPCS: 36415; 82947; 85025; 85461; 86850; 86900; 86901; 93005

== ENCOUNTER 2023-08-05 14:19 | Outpatient (RCR) | payer OTHER, SELFPAY ==
[2023-08-07] MEDS: RHO(D) IMMUNE GLOBULIN 300 MCG/2 ML SYRINGE IM (10:14)
== END 2023-11-03 23:59 | disposition home or self-care (01) ==
LOC: ANHLAB 14:19
PROVIDERS: PCP Nurse Practitioner Family; Visit Provider Obstetrics & Gynecology
DX: Z29.13 Encounter for prophylactic Rho(D) immune globulin (principal); O36.0190 Maternal care for anti-D [Rh] antibodies, unspecified trimester, not applicable or unspecified; Z3A.00 Weeks of gestation of pregnancy not specified
CPT/HCPCS: 36415; 85461; 86850; 86900; 86901; 90384; 96372; J2790

== ENCOUNTER 2023-08-08 08:17 | Outpatient (CLI) | payer OTHER, SELFPAY ==
--- NOTE | 2023-08-12 07:46 | WPDHOLTEREM ---
Holter/Event Monitor Holter/Event Monitor Date of procedure: 08/08/23 Holter/Event Procedure: 24 Hr Holter Monitor Indications: Chest pain Conclusion: 1. 24 hour holter monitor on 08/08/23. 2. Underlying rhythm is sinus rhythm. HR range 57-158 bpm; average HR 81 bpm. HR at 158 bpm was at 16:36. 3. There is 1 premature supraventricular complex. No supraventricular tachycardia. 4. No premature ventricular complex. No ventricular tachycardia. 5. No sinoatrial or atrioventricular blocks. No significant pauses greater than 2 seconds. 6. Patient reports symptoms of chest pain which demonstrate sinus rhythm, HR range 92-94 bpm.
== END 2023-08-08 08:18 | disposition home or self-care (01) ==
LOC: ANHCARD 08:21
PROVIDERS: PCP Nurse Practitioner Family; Visit Provider Registered Nurse
DX: R07.9 Chest pain, unspecified (principal)
CPT/HCPCS: 93225; 93226

== ENCOUNTER 2023-09-15 11:25 | Outpatient (CLI) | payer OTHER, SELFPAY ==
[2023-09-15 11:54] LABS: Hematocrit 36.1 % (35.0-49.0); Hemoglobin 11.8 g/dL (12.0-15.0); Mean Corpuscular HGB Conc 32.7 g/dL (32.0-36.0); Mean Corpuscular Hemoglobin 27.6 pg (27.0-31.0); Mean Corpuscular Volume 84.5 fL (78.0-102.0); Mean Platelet Volume 11.3 fl (9.2-11.8); Platelet Count Result 251 K/mm3 (150-420); Red Blood Count 4.27 M/mm3 (4.20-5.40); Red Cell Distribution Width 12.5 % (11.6-14.4); White Blood Count 9.4 K/mm3 (4.8-10.8)
[2023-09-15 12:46] LABS: Thyroid Stimulating Hormone 0.43 uIU/mL (0.36-3.74)
[2023-09-15 12:47] LABS: HIV 1 P24 AG Negative (Negative); HIV 1/2 AB Negative (Negative)
[2023-09-17 14:31] LABS: RPR Screen Non-Reactive (Non-Reactive)
== END 2023-09-15 11:26 | disposition home or self-care (01) ==
PROVIDERS: PCP Registered Nurse; Visit Provider Registered Nurse
DX: R07.9 Chest pain, unspecified (principal); Z34.93 Encounter for supervision of normal pregnancy, unspecified, third trimester
CPT/HCPCS: 36415; 84443; 85027; 86592; 87806

== ENCOUNTER 2023-09-16 19:06 | Outpatient (RCR) | payer OTHER, SELFPAY ==
[2023-09-16 20:36] VITALS: BP 107/70; PULSE 88
== END 2023-10-16 11:29 | disposition home or self-care (01) ==
LOC: ANHOBOP 19:06
PROVIDERS: PCP Registered Nurse; Visit Provider Obstetrics & Gynecology
DX: O36.8130 Decreased fetal movements, third trimester, not applicable or unspecified (principal); Z3A.36 36 weeks gestation of pregnancy
CPT/HCPCS: 59025

== ENCOUNTER 2023-09-22 17:42 | Inpatient (IN) | payer OTHER, SELFPAY ==
[2023-09-22] VITALS (15 sets, daily range): BP systolic 120–133; BP diastolic 66–84; PULSE 87–137; O2SAT 100; BMI 38.7
[2023-09-22 18:56] LABS: Basophils Percent Auto 0.2 % (0.2-1.2); Eosinophils Absolute Auto 0.1 K/mm3 (0-0.3); Eosinophils Percent Auto 1.2 % (0-4.4); Hematocrit 38.6 % (37.0-47.0); Immature Granulocyte Absolute 0.05 K/mm3 (0.00-0.031); Immature Granulocyte Percent A 0.6 % (0-0.5); Lymphocytes Absolute Auto 1.62 K/mm3 (0.9-3.2); Lymphocytes Percent Auto 19.1 % (18.3-44.2); Mean Corpuscular HGB Conc 31.1 g/dl (32-36); Mean Corpuscular Hemoglobin 26.8 pg (26-34); Mean Corpuscular Volume 86.4 fl (80-100); Mean Platelet Volume 11.7 fl (7.4-10.4); Monocytes Absolute Auto 0.7 K/mm3 (0.1-0.6); Monocytes Percent Auto 8.1 % (2.6-8.5); Neutrophils Percent Auto 70.8 % (45.5-73.1); Platelet Count Result 241 k/mm3 (150-375); Red Blood Count 4.47 M/mm3 (4.2-5.4); White Blood Count 8.5 K/mm3 (4.5-10.0)
[2023-09-22] MEDS: OXYTOCIN 30 UNITS/NS 500 ML 30 UNITS/500 ML BAG IV CONT (19:47)
[2023-09-22] MEDS: LACTATED RINGERS 1,000 ML 125 ML IV CONT (19:48)
--- NOTE | 2023-09-22 20:38 | WPDANESEPP ---
Anes - Eval Pre Procedure Procedure: labor epidural Date/Time: 09/22/23 20:38 Surgeon: keyla Preop Diagnosis: pain during labor Pre Op Diagnosis: Labor Patient Data Age: 28 Gender: F Height: 1.68 m Weight: 109 kg Last Vital Signs Pulse 91 09/22/23 20:31 BP 126/80 09/22/23 20:31 O2 Del Method Room Air 09/22/23 18:53 Allergies Allergy/AdvReac Type Severity Reaction Status Date / Time No Known Allergies Allergy Unknown Verified 09/20/23 12:17 Home Medications Medication Instructions Recorded Confirmed Type escitalopram oxalate 20 mg tablet 20 mg PO DAILY #90 tabs 04/01/23 09/21/23 Rx vitamin#30 30 mg iron-10 See Rx Instructions PO .COMPLEX 05/26/23 09/21/23 History mg iron-folic acid 1 mg-omg3 capsule Laboratory Tests 09/22/23 18:47 WBC 8.5 K/mm3 (4.5-10.0) RBC 4.47 M/mm3 (4.2-5.4) Hgb 12.0 g/dL (12.0-15.0) Hct 38.6 % (37.0-47.0) MCV 86.4 fl (80-100) MCH 26.8 pg (26-34) MCHC 31.1 L g/dl (32-36) RDW 13.0 % (11.5-14.5) Plt Count 241 k/mm3 (150-375) MPV 11.7 H fl (7.4-10.4) Immature Gran % (Auto) 0.6 H % (0-0.5) Neut % (Auto) 70.8 % (45.5-73.1) Lymph % (Auto) 19.1 % (18.3-44.2) [place] % (Auto) 8.1 % (2.6-8.5) Eos % (Auto) 1.2 % (0-4.4) Baso % (Auto) 0.2 % (0.2-1.2) Lymph # (Auto) 1.62 K/mm3 (0.9-3.2) [place] # (Auto) 0.7 H K/mm3 (0.1-0.6) Eos # (Auto) 0.1 K/mm3 (0-0.3) Baso # (Auto) 0.0 K/mm3 (0.0-0.1) Abs Immat Gran (auto) 0.05 H K/mm3 (0.00-0.031) Absolute Neuts (auto) 6.0 K/mm3 (1.3-6.7) Absolute Nucleated RBC 0.0 K/mm3 (0.0-0.012) Nucleated RBC % 0.0 % (0.0-0.2) RPR Pending Blood Type A Negative Antibody Screen Pending Patient hx anesthesia problems: none Family hx anesthesia problems: none Results Review: All pre-operative results and documents have been reviewed as part of the pre-operative evaluation. [facility] Past Medical History Medical History Anxiety with depression Chest pain Chlamydia contact, treated Migraines Morbid obesity Normal spontaneous vaginal delivery and not yet delivered URI (upper respiratory infection) Surgical History Surgical History No significant past surgical history Family History Family History Other Patient denies significant medical history Social History Social History Smoking status: Never smoker Alcohol intake: never Substance use: never Substance use type: does not use Lack of Transportation: No Lack of Food: Never True Current Housing: I Have Housing Concerned About Future Housing: No Difficulty Paying Gas/Electric Bills: No Difficulty Paying for Meds: No Currently Unemployed: No Education: Bachelor's Degree Difficulty w/ Childcare or Family Care: No Living arrangements: with family Occupation/Education: other Additional occupation/education comments: Stay at home mom Gender identity (if verbalized by the patient): Female Sexual Orientation (if Verbalized by the Patient): Straight or Heterosexual Spiritual care concerns: No Exam Day of Procedure 09/22/23 20:38
--- NOTE | 2023-09-22 20:59 | PM.IMHP ---
H&P: HPI History of Present Illness Date/Time: 09/22/23 20:59 Chief Complaint: leakage of fluid Narrative: Kevyn is a 28yo @ 37.2wks who presented with leakage of clear fluid at 1600. She denies pain or bleeding. She feels good movement. She has had regular care with Dr. Egan and GISEL. Her is complicated by: 1. Short interval 2. History of anxiety/depression stable on medication continue on the citalopram. 3. History of migraine headaches. 4. Rh negative Review of Systems Constitutional: Constitutional: Denies chills, Denies fever(s) and Denies headache(s) Eyes: Eyes: Denies change in vision ENT: Denies headache(s) Cardiovascular: Cardiovascular: Denies chest pain and Denies dyspnea Respiratory: Respiratory: Denies dyspnea Genitourinary: Genitourinary: Denies abnormal vaginal bleeding and Reports vaginal discharge Neurologic: Denies headache(s) Psychiatric: Psychiatric: Denies anxiety and Denies depression [facility] Past Medical History Medical History Anxiety with depression Chest pain Chlamydia contact, treated Migraines Morbid obesity Normal spontaneous vaginal delivery and not yet delivered URI (upper respiratory infection) Surgical History Surgical History No significant past surgical history Family History Family History Other Patient denies significant medical history Social History Social History Smoking status: Never smoker Alcohol intake: never Substance use: never Substance use type: does not use Lack of Transportation: No Lack of Food: Never True Current Housing: I Have Housing Concerned About Future Housing: No Difficulty Paying Gas/Electric Bills: No Difficulty Paying for Meds: No Currently Unemployed: No Education: Bachelor's Degree Difficulty w/ Childcare or Family Care: No Living arrangements: with family Occupation/Education: other Additional occupation/education comments: Stay at home mom Gender identity (if verbalized by the patient): Female Sexual Orientation (if Verbalized by the Patient): Straight or Heterosexual Spiritual care concerns: No Meds Home Medications and Allergies Home Medications Medication Instructions Recorded Confirmed Type escitalopram oxalate 20 mg tablet 20 mg PO DAILY #90 tabs 04/01/23 09/21/23 Rx vitamin#30 30 mg iron-10 See Rx Instructions PO .COMPLEX 05/26/23 09/21/23 History mg iron-folic acid 1 mg-omg3 capsule Allergies Allergy/AdvReac Type Severity Reaction Status Date / Time No Known Allergies Allergy Unknown Verified 09/20/23 12:17 Vital Signs Vital Signs - 24 hr 09/22/23 18:53 09/22/23 20:31 Pulse Rate 91 Blood Pressure 126/80 Oxygen Delivery Room Air Exam Const: General: cooperative, no acute distress and obese Nutritional Appearance: obese Orientation/consciousness: patient oriented x3 Resp: Effort & Inspection: normal respiratory effort Cardio: Rate: regular rate GI: GI Palp: No abdominal tenderness : Other: FHT's: 120's/ mod rock/ + accels/ no decels - cat 1 TOCO: irregular ctxs Cervix: 2.5/50/-3 Membranes: SROM, clear 1600 on 09/22/23 Presentation: cephalic Skin: General skin exam: normal color Neuro: General: patient oriented x3 Extrem: General: normal to inspection Psych: Appearance: grossly normal Affect: normal affect Attitude: cooperative H&P: Results Labs Labs: Short CBC 09/22/23 Range/Units 18:47 WBC 8.5 (4.5-10.0) K/mm3 Hgb 12.0 (12.0-15.0) g/dL Hct 38.6 (37.0-47.0) % Plt Count 241 (150-375) k/mm3 Assessment and Plan Assessment and plan (1) Spontaneous rupture of membranes: Status: Acute Plan - admi
[2023-09-22] MEDS: ONDANSETRON INJ 4 MG/2 ML VIAL IV PUSH (23:58)
[2023-09-23] VITALS (87 sets, daily range): BP systolic 98–123; BP diastolic 49–76; PULSE 25–136; RESP 16–18; TEMP 36.4–37.4; O2SAT 92–100
[2023-09-23] MEDS: SODIUM CHLORIDE 0.9% IV 300 ML 600 ML I-UTERINE (02:28)
--- NOTE | 2023-09-23 03:53 | P.PCNOB_ITS ---
OB - Delivery Note Procedure Delivery date: 09/23/23 Intrapartal Events: Decelerations Delivery augmentation: Pitocin Delivery monitor: External FHT and Internal Uterine Route of delivery: Laceration Description: None Specimen: Yes (placenta) Quantitative Blood Loss (ml): 150 Anesthesia type: Epidural Disposition: Floor [place] Baby Date of : 09/23/23 Time of : 03:28 Weeks of gestation at delivery: 37 (.3) gender: Male Weight (pounds): 6 Weight (ounces): 5 presentation: vertex Placenta delivery description: Expressed Cord Vessel Description: 3 Vessels, Nuchal Cord, Reduced and Clamped/Cut score one minute: 7 score five minutes: 8 Narrative: Kevyn Progressed to complete dilation with strong desire to push. She pushed for approximately 5 minutes with good maternal effort. She delivered the head over intact perineum. Nuchal cord was noted reduced. She easily delivered the 's shoulders and body without complication. The was immediately placed skin to skin and had minimal cry. The umbilical cord was doubly clamped cut. The pediatric team took the baby over to the warmer for further stimulation. A segment of the cord was collected for cord gases. The remaining cord blood was collected for typing. With Pitocin running and gentle downward traction on the cord and expressing the placenta, it delivered without complications. Bimanual massage was performed and a small amount of membranes were removed. Minimal bleeding with good fundal tone was noted. She was examined and no lacerations were identified. Sponge, lap, instrument, and needle counts were correct at the end the procedure. Mom and baby were left bonding in the birthing suite in stable condition. [facility] Delivery Billing Delivery Delivery: Delivery Charge
[2023-09-23] MEDS: OXYTOCIN 30 UNITS/NS 500 ML 30 UNITS/500 ML BAG 125 UNITS IV CONT (04:08)
[2023-09-23] MEDS: miSOPROStol 200 MCG TABLET 800 MCG RECTAL (04:15)
[2023-09-23] MEDS: IBUPROFEN 600 MG TABLET PO ×2 (05:31→20:18)
[2023-09-23] MEDS: BENZOCAINE 20% AER SPR (*SP) 56 GM CAN 1 SPRAY TOPICAL (05:32)
[2023-09-23] MEDS: WITCH HAZEL 40 PADS 1 PAD TOPICAL (05:32)
--- NOTE | 2023-09-23 07:35 | OBPPTRN ---
Patient transferred to post room # 290 via wheelchair. Support person present. Oriented to unit, room, information board, rooming in, admission packet and security measures. Patient verbalizes understanding.
[2023-09-23] MEDS: DOCUSATE SODIUM 100 MG CAPSULE PO ×2 (08:37→15:59)
[2023-09-23] MEDS: ESCITALOPRAM OXALATE 10 MG TABLET 20 MG PO (08:37)
[2023-09-23 09:10] LABS: Rapid Plasma Reagin Non-Reactive (NonReactive)
[2023-09-24 03:50] LABS: Hematocrit 35.2 % (37.0-47.0); Hemoglobin 10.8 g/dL (12.0-15.0)
[2023-09-24 07:40] VITALS: BP 104/71; PULSE 70; RESP 16; TEMP 36.6; O2SAT 100
[2023-09-24] MEDS: IBUPROFEN 600 MG TABLET PO (09:06)
[2023-09-24] MEDS: TETANUS,DIPHTHERIA,AC PERTUSSIS ADULT (0.5 ML) BOOSTRIX IM (09:07)
[2023-09-24] MEDS: ESCITALOPRAM OXALATE 10 MG TABLET 20 MG PO (09:07)
[2023-09-24] MEDS: DOCUSATE SODIUM 100 MG CAPSULE PO (09:07)
[2023-09-24] MEDS: RHO(D) IMMUNE GLOBULIN 300 MCG/2 ML SYRINGE IM (09:34)
--- NOTE | 2023-09-24 09:53 | WPDANLDPN2 ---
Anes-Prog Note L&D Date/Time: 09/24/23 09:53 Comfortable throughout: labor and delivery Neuraxial method: epidural Epidural/Spinal procedure site: clean & non-tender Neuro status: Neuro function grossly intact. Cardiovascular status: normal Respiratory status: normal Airway patency: baseline Mental status: baseline Post-Op hydration status: normal Vital Signs: Last Vital Signs Temp 36.6 C 09/24/23 07:40 Pulse 70 09/24/23 07:40 Resp 16 09/24/23 07:40 BP 104/71 09/24/23 07:40 Pulse Ox 100 09/24/23 07:40 O2 Del Method Room Air 09/22/23 18:53 Pain score (VAS): 2/10 Post-procedural complaints: none Patient feedback: Patient satisfied with anesthetic care.
[2023-09-25 09:12] VITALS: BP 120/79; PULSE 75; RESP 18; TEMP 36.6; O2SAT 100
--- NOTE | 2023-10-17 11:31 | PM.OBDSVD ---
DS: Admitting Diagnosis Discharge Date 09/24/23 Admitting Diagnosis Spontaneous rupture of membranes DS: Discharge Diagnosis Discharge Diagnosis (1) Vaginal delivery: Code(s): O80 - Encounter for full-term uncomplicated delivery Status: Acute OB - DS: Summary Hospital Course Hospital Course: She was admitted after confirm spontaneous rupture of membranes she proceeded to have an uncomplicated vaginal delivery. She did well baby was doing well she was discharged to home on post day 1. OB Procedures : Ultrasound OB Procedures Intrapartum: Spontaneous Vag Delivery OB Procedures: : None Peripartum Data Infant Delivery Method: Natural Vaginal Laceration Description: None Time Spent with Patient Time attestation: Total time spent providing and/or coordinating discharge services: DS: Data Data Completed and Pending Completed studies during hospitalization: Pending at discharge 09/23/23 08:33 Surgical [PTH] Routine Discharge Plan Discharge Attending physician on discharge: Chas Egan Consulting providers: Nellie Hull; Judy Estrada; Katia Krishna Discharging Clinician: Chas Egan Anticipated Discharge Date/Time: 09/24/23 11:25 Patient Disposition: Home, Self-Care Activity: may shower and pelvic rest Diet: regular Discharge Instructions: Education: Mom and Baby Guide Given to: Mother Follow-Up: Call your delivering provider's office for an appointment to be seen in: 4 Weeks Mom and baby should come to the [facility] for the follow-up appointment. Appointment Date/Time: September 25, 2023 at 9:00 am What to expect at your follow-up visit: Physical Assessment Call [phone] if you are unable to keep your appointment time. BREAST CARE: * Wear a snug supportive bra. Bottle Feeding: apply ice packs PERINEAL CARE: * Until bleeding stops, use your bhavya bottle after urinating * Change your pad frequently throughout the day * You may take sitz baths several times a day (fill your bathtub with warm water and soak for 20 minutes.) Do NOT bathe in the water * No tub baths until seen by your physician - You may shower ACTIVITY: * Rest as much as possible. * Do not exercise or lift anything heavier than your baby (such as laundry or other children.) * Avoid stairs or driving as much as possible. * Do not put anything into the vagina. No douching, tampons, or sexual activity until seen by physician. NOTIFY PHYSICIAN IF YOU HAVE ANY QUESTIONS OR IF ANY OF THE FOLLOWING SYMPTOMS OCCUR: * If your episiotomy or incision becomes red, swollen, or more painful than what you have experienced in the hospital. * If your vaginal bleeding becomes foul smelling. * If your vaginal bleeding becomes more heavy than a period or if your bleeding changes from pink to bright red. However, you may pass an occasional walnut-sized clot once or twice for the first week . * If you experience a sharp, shooting pain in you calves. * If you discover a hard, reddened area on your breast or if you experience flu-like symptoms. DIET: * Eat regular, well-balanced meals. * Drink plenty of fluids daily. If , drink to thirst. Patient Instructions: Vaginal Delivery (DC) Stand Alone Forms: General Discharge Information Follow-up/Referrals: Chas Egan MD [Physician] - 4 Weeks Discharge Medications: Continued escitalopram oxalate 20 mg tablet 20 mg PO DAILY Qty: 90 3RF Rx Instructions: take a half tab by mouth daily for 1 week, and then take a full tab by mouth daily No Action cephalexin 500 mg tablet 500 mg PO Q8H Qty: 15 0RF Date of admission: 09/22/23 17:42 Primary Care Provider: Darlyn Levy Admitting Provider: Chas Egan Attending physician on admission: Chas Egna Condition: Stable
== END 2023-09-24 12:21 | disposition home or self-care (01) | DRG 807 ==
LOC: ANHLDR 18:15 → ANHOB2 09-23 07:36
PROVIDERS: Obstetrics & Gynecology; Admitting Provider Obstetrics & Gynecology; PCP Registered Nurse; Visit Provider Obstetrics & Gynecology
DX: O99.344 Other mental disorders complicating childbirth (principal); Z37.0 Single live birth; F41.8 Other specified anxiety disorders; O99.214 Obesity complicating childbirth; E66.01 Morbid (severe) obesity due to excess calories; O76 Abnormality in fetal heart rate and rhythm complicating labor and delivery; O69.81X0 Labor and delivery complicated by cord around neck, without compression, not applicable or unspecified; Z3A.37 37 weeks gestation of pregnancy; Z67.91 Unspecified blood type, Rh negative
CPT/HCPCS: 36415; 84112; 85014; 85018; 85025; 85461; 86592; 86850; 86880; 86900; 86901; 86902; 88307; 90384; 90715; A9270; J2405; J2590; J2790; J2795; J7030; J7120

== ENCOUNTER 2023-10-08 16:42 | Emergency (ER) | payer OTHER, SELFPAY ==
[2023-10-08 16:45] VITALS: BP 125/81; PULSE 73; RESP 18; TEMP 36.1; O2SAT 98
--- NOTE | 2023-10-08 16:51 | ED.UPPEXIN ---
HPI - Extremity Injury (Upper) General Chief Complaint: Extremity Injury, Upper Stated Complaint: ARM PAIN Time Seen by Provider: 10/08/23 16:50 Source: patient Mode of arrival: ambulatory Limitations: no limitations History of Present Illness HPI narrative: 28-year-old female delivered a baby weeks ago. Her delivery was uncomplicated on 09/23/2023. She presents to the ER with a 2 day history of -- tender subcutaneous swelling in the right medial forearm measuring around 2 cm. She had an IV placed lower down in the forearm. No fever or chills. complaint: injury to: right and forearm Onset (ago): day(s) ( 2 days) Severity: mild Relieving factors: none Exacerbating factors: none Associated symptoms: denies other symptoms Related Data Allergies Allergy/AdvReac Type Severity Reaction Status Date / Time No Known Allergies Allergy Unknown Verified 10/08/23 16:50 Review of Systems Review of Systems: All systems reviewed & are unremarkable except as noted in HPI and below Constitutional: Constitutional: Reports as per HPI and Reports no additional constitutional complaints Eyes: Eyes: Reports as per HPI and Reports no additional eye complaints ENT: Reports system reviewed and no additional complaints, except as documented and Reports as per HPI Cardiovascular: Cardiovascular: Reports as per HPI Respiratory: Respiratory: Reports as per HPI and Reports no additional respiratory complaints Gastrointestinal: Gastrointestinal: Reports as per HPI and Reports no additional gastrointestinal complaints Genitourinary: Comments: Her vaginal discharge is getting sports management internship. no foul smell. Musculoskeletal: Musculoskeletal: Reports no additional musculoskeletal complaints and Reports as per HPI Integumentary/Breasts: Skin/Breast: Reports system reviewed and no additional complaints, except as docu and Reports as per HPI Comments: 2 cm subcutaneous swelling in the right forearm Neurologic: Reports system reviewed and no additional complaints, except as documented and Reports as per HPI Psychiatric: Psychiatric: Reports no additional psychiatric complaints and Reports as per HPI Endocrine: Endocrine: Reports no additional endocrine complaints and Reports as per HPI Hematologic/Lymphatic: Hematologic/Lymphatic: Reports no additional hematologic/lymphatic complaints and Reports as per HPI Allergic/Immunologic: Allergic/Immunologic: Reports no additional allergic/immunologic complaints and Reports as per HPI PMFSH Past Medical History Medical History Anxiety with depression Chest pain Chlamydia contact, treated Migraines Morbid obesity Normal spontaneous vaginal delivery and not yet delivered URI (upper respiratory infection) Surgical History Surgical History No significant past surgical history Family History Family History Other Patient denies significant medical history Social History Social History Smoking status: Never smoker Alcohol intake: never Substance use: never Substance use type: does not use Lack of Transportation: No Lack of Food: Never True Current Housing: I Have Housing Concerned About Future Housing: No Difficulty Paying Gas/Electric Bills: No Difficulty Paying for Meds: No Currently Unemployed: No Education: Bachelor's Degree Difficulty w/ Childcare or Family Care: No Living arrangements: with family Occupation/Education: other Additional occupation/education comments: Stay at home mom Gender identity (if verbalized by the patient): Female Sexual Orientation (if Verbalized by the Patient): Straight or Heterosexual Spiritual care concerns: No Exam Const: General: healthy appearing and no acute distre
== END 2023-10-08 17:11 | disposition home or self-care (01) ==
PROVIDERS: Emergency Provider Internal Medicine Critical Care Medicine; PCP Nurse Practitioner Family
DX: I80.8 Phlebitis and thrombophlebitis of other sites (principal)
CPT/HCPCS: 99281

== ENCOUNTER 2024-08-16 12:05 | Outpatient (CLI) | payer OTHER, SELFPAY ==
--- NOTE | ~2024-08-16 | US_ITS ---
US pelvic complete w TV Ordering provider: Nellie Hull MD History: . N93.9 - Abnormal uterine and vaginal bleeding, unspecified . Comparison: None. Technique: Transabdominal and endovaginal ultrasound of the pelvis (Doppler ultrasound interrogation techniques used as needed for this exam.) FINDINGS: CERVIX: Minimal fluid. Nabothian cysts. UTERUS: Measures 10x 5.2x 4.6 cm in length which is within normal limits and is anteverted. No myome trial masses. ENDOMETRIUM: Normal in thickness measuring 12.6 mm. (Note: the premenopausal endometrium may measure up to 16 mm when in the secretory phase.) No endometrial masses, cysts or fluid. CUL DE SAC: No free fluid. RIGHT OVARY: Normal in size measuring 2.2x 1.6x 2 cm. Normal echotexture. Doppler vascular flow prese nt. LEFT OVARY: Normal in size measuring 3.1x 2.2x 2.6 cm. Normal echotexture. Doppler vascular flow pres ent. ADNEXA: Normal. No mass. IMPRESSION: Slightly thickened endometrium. Correlation with menstrual Stage is advised. Minimal fluid in the cer vix with nabothian cysts. Otherwise, normal pelvic ultrasound. Reviewed, dictated and finalized at location A. IMPRESSION: Slightly thickened endometrium. Correlation with menstrual Stage is advised. Mi nimal fluid in the cervix with nabothian cysts. Otherwise, normal pelvic ultras ound.
== END 2024-08-16 12:06 | disposition home or self-care (01) ==
LOC: CHSIMG 12:07
PROVIDERS: PCP Nurse Practitioner Family; Visit Provider Obstetrics & Gynecology
DX: N93.9 Abnormal uterine and vaginal bleeding, unspecified (principal); R93.89 Abnormal findings on diagnostic imaging of other specified body structures
CPT/HCPCS: 76830; 76856

== ENCOUNTER 2024-08-30 12:19 | Outpatient (CLI) | payer OTHER, SELFPAY ==
[2024-08-30 12:54] LABS: Basophils Absolute Auto 0.06 K/mm3 (0.00-0.10); Basophils Percent Auto 0.8 % (0.0-1.0); Eosinophils Absolute Auto 0.19 K/mm3 (0.02-0.50); Eosinophils Percent Auto 2.4 % (1.0-6.0); Hematocrit 40.9 % (35.0-49.0); Hemoglobin 13.6 g/dL (12.0-15.0); Immature Granulocyte Absolute 0.03 K/mm3 (0.00-0.00); Immature Granulocyte Percent A 0.4 % (0.0-0.0); Lymphocytes Absolute Auto 1.88 K/mm3 (1.10-4.50); Lymphocytes Percent Auto 23.7 % (18.0-42.0); Mean Corpuscular HGB Conc 33.3 g/dL (32-36); Mean Corpuscular Volume 84.2 fL (78.0-102.0); Monocytes Absolute Auto 0.39 K/mm3 (0.10-0.90); Monocytes Percent Auto 4.9 % (2.0-11.0); Neutrophils Absolute Auto 5.37 K/mm3 (1.70-7.20); Neutrophils Percent Auto 67.8 % (50.0-70.0); Platelet Count Result 269 K/mm3 (150-420); Red Blood Count 4.86 M/mm3 (4.20-5.40); White Blood Count 7.9 K/mm3 (4.8-10.8)
[2024-08-30 14:27] LABS: Alanine Aminotransferase 38 U/L (14-59); Albumin Level 3.6 g/dL (3.4-5.0); Alkaline Phosphatase 68 U/L (46-116); Anion Gap 12 mmol/L (4-12); Aspartate Amino Transferase 21 U/L (15-37); Bilirubin,Total 0.8 mg/dL (0.00-1.00); Blood Urea Nitrogen 7 mg/dL (7-18); Carbon Dioxide 22 mmol/L (21-32); Chloride 105 mmol/L (98-108); Cholesterol 160 mg/dL (0-200); Estimated Glomerular Filt Rate > 60; Glucose 108 mg/dL (70-99); HDL Direct 43 mg/dL (40-60); Iron 90 ug/dL (50-170); LDL Cholesterol Calculated 100 mg/dL (<130); Osmolality Calculated 287 mOsm/kg (285-295); Percent Iron Saturation 26 % (12-57); Potassium 3.7 mmol/L (3.5-5.1); Sodium 139 mmol/L (136-145); Total Protein 7.1 g/dL (6.4-8.2); Triglycerides 87 mg/dL (0-150)
[2024-08-30 14:49] LABS: Hemoglobin A1C 4.9 % (<5.7)
[2024-08-30 15:02] LABS: Thyroid Stimulating Hormone Reflex 0.86 u/IU/mL (0.36-3.74)
[2024-09-01 04:40] LABS: Vitamin D 25 Hydroxy 26 ng/mL (30-100)
[2024-09-01 07:48] LABS: DHEA-Sulfate 202 mcg/dL (14-349); Progesterone 0.5 ng/mL
[2024-09-01 10:14] LABS: FSH 12.3 mIU/mL; Prolactin 10.5 ng/mL
[2024-09-06 00:59] LABS: Estradiol, Ultrasensitive 49 pg/mL
[2024-09-07 20:53] LABS: Testosterone Free 1.6 pg/mL (0.1-6.4); Testosterone Total 22 ng/dL (2-45)
== END 2024-08-30 12:20 | disposition home or self-care (01) ==
LOC: CHSLAB 12:22
PROVIDERS: Obstetrics & Gynecology; PCP Nurse Practitioner Family; Visit Provider Nurse Practitioner Family
DX: Z00.00 Encounter for general adult medical examination without abnormal findings (principal); N92.6 Irregular menstruation, unspecified
CPT/HCPCS: 36415; 80053; 80061; 82306; 82627; 82670; 83001; 83036; 83498; 83540; 83550; 84144; 84146; 84402; 84403; 84443; 85025

== ENCOUNTER 2024-10-11 00:10 | Day surgery (SDC) | payer OTHER, SELFPAY ==
[2024-10-06 10:03] VITALS: BMI 32.3
--- NOTE | 2024-10-06 10:04 | PC.NURSE ---
Report to the Outpatient Waiting Room, entrance under the green pavilion located off [facility], at time _1130_ on date _[id number]_. Planned Procedure Time: _130pm_.? Time changes happen often and if your time is changed the preop area will call you the afternoon before. - You and your visitor will be asked to self-screen and do not enter if you have any COVID symptoms. Please call surgeon if you need to reschedule. - A mask is optional within the hospital at this time. Patients may have clear liquids (water, carbonated beverages, clear teas, apple juice) until 3 hours prior to surgery with a maximum of 20 ounces. - No food from midnight until time of surgery and no smoking Take only the following medications with a SIP of water on the morning of surgery: __Escitalapram and BC pill. If needed may use Alprazolam or Zofran__ DO NOT STOP ANY OF YOUR OTHER PRESCRIPTION MEDICATIONS PRIOR TO SURGERY EXCEPT THE FOLLOWING Medications to discontinue per physician ____Semaglutide__ Date to take last dose__Skip todays dose until after surgery.___ Please no make-up, nail bulgarian, hairspray, perfume, deodorant, or body powder the day of surgery.? No jewelry (including any body piercings) or valuables the day of surgery, leave them at home.? Please take a shower or bath the night before, or the morning of, surgery with an antibacterial soap.? Wear comfortable, loose fitting clothing.? - Jewelry must be removed prior to entering the operating room.? Rings and piercings that are not removed may be cut off. - The hospital will not accept responsibility for valuables.? - Please leave all valuables, including medications, at home the day of surgery. If you are going home after surgery, a licensed driver medic must drive you home.? - NO public transportation without another adult if you receive anesthesia. - We recommend that an adult stay with you for 24 hours following discharge. - We also recommend that you do not drive, make important decision, drink alcoholic beverages, or take any drugs that were not prescribed by your health care provider for at least 24 hours after your discharge time. Follow any additional instructions given to you from your surgeon. Telephone instructions given to __Kevyn__and asked if any additional questions and then verbalized understanding. Patient advised to call surgeon office or pre surgery nurse liaison [phone] if any additional questions.
--- NOTE | 2024-10-10 10:25 | WPDANESEPPF ---
Anes - Initial Pre Proc Eval Procedure: Operation Date: 10/11/24 11:30 Proposed Procedures p Hysteroscopy Dilation and Curettage - Nellie Hull MD Date/Time: 10/10/24 10:25 Surgeon: Nellie Hull MD Pre Op Diagnosis: abnormal uterine bleeding Patient Data Age: 29 Gender: F Height: 1.68 m Weight: 90.9 kg Allergies Allergy/AdvReac Type Severity Reaction Status Date / Time No Known Allergies Allergy Unknown Verified 10/11/24 10:16 Home Medications Medication Instructions Recorded Confirmed Type escitalopram oxalate 20 mg tablet 20 mg PO DAILY #90 tabs 11/15/23 10/11/24 Rx semaglutide (weight loss) 0.5 0.5 mg subcut WEEKLY 08/11/24 10/11/24 History mg/0.5 mL subcutaneous pen injector alprazolam 0.25 mg tablet 0.25 mg PO DAILY PRN anxiety #20 08/27/24 10/11/24 Rx tabs norethindrone acetate 1.5 1 tablet PO .COMPLEX #42 tabs 10/05/24 10/11/24 Rx mg-ethinyl estradiol 30 mcg tablet ondansetron 4 mg disintegrating 4 mg PO Q6H PRN nausea and 10/05/24 10/11/24 Rx tablet vomiting #20 tabs Patient hx anesthesia problems: none Family hx anesthesia problems: none Results Review: All pre-operative results and documents have been reviewed as part of the pre-operative evaluation. FOR[facility]LY [facility] Past Medical History Medical History (Updated 10/10/24 @ 10:26 by Otto López DO) Anxiety with depression Chest pain Chlamydia contact, treated Migraines Normal spontaneous vaginal delivery and not yet delivered URI (upper respiratory infection) Surgical History Surgical History No significant past surgical history Family History Family History Other Patient denies significant medical history Social History Social History Smoking status: Never smoker Alcohol intake: never Substance use: never Substance use type: does not use Do You Feel Safe in your Home?: Yes Lack of Transportation: No Lack of Food: Never True Current Housing: Decline to Answer Concerned About Future Housing: Decline to Answer Difficulty Paying Gas/Electric Bills: Decline to Answer Difficulty Paying for Meds: Decline to Answer Currently Unemployed: Decline to Answer Education: Master's Degree or Higher Difficulty w/ Childcare or Family Care: Decline to Answer Living arrangements: with family Occupation/Education: other Additional occupation/education comments: Stay at home mom Gender identity (if verbalized by the patient): Female Sexual Orientation (if Verbalized by the Patient): Straight or Heterosexual Spiritual care concerns: No Anes - Eval Final PreProcedure Day of Procedure 10/10/24 10:25 Patient weight: obese Heart: regular rate and rhythm Lungs: clear to auscultation Airway: Mallampati scale class II Neurological: alert and oriented Last oral intake: >/= 8 hours ASA classification: II Emergent: no Anesthetic plan: proceed Anesthesia type and monitoring: general GIVS and standard monitoring Results Review: All pre-operative results and documents have been reviewed as part of the pre-operative evaluation. Informed Consent: The patient's anesthetic plan and its attendant risks and benefits were discussed with the patient/family/POA. Questions were solicited and answers provided to the satisfaction of the patient/family/POA.
--- NOTE | 2024-10-11 07:14 | WPDHPUPDATE1 ---
History and Physical Update Update Date/Time: 10/11/24 07:14 History and Physical has been reviewed, including an updated exam of the patient. There are NO changes in the patient's condition. Risks, benefits, and alternatives have been discussed and questions answered. Patient agrees to proceed with hysteroscopy with D&C.
[2024-10-11 09:40] VITALS: BP 121/72; PULSE 62; RESP 16; TEMP 36.2; O2SAT 100
[2024-10-11] MEDS: LACTATED RINGERS 1,000 ML 30 ML IV CONT (10:05)
[2024-10-11] MEDS: ACETAMINOPHEN 500 MG TABLET 1000 MG PO (10:15)
[2024-10-11 10:20] LABS: BEDSIDEPREGUCG Negative (Negative)
[2024-10-11 12:06] VITALS: BP 136/75; PULSE 78; RESP 18; O2SAT 100
--- NOTE | 2024-10-11 12:10 | W.PM.PROC2 ---
Procedure Note - Detailed Date of Procedure 10/11/24 Pre-op Diagnosis abnormal uterine bleeding Post-op Diagnosis Same Procedure Performed Hysteroscopy with D&C Surgeon Nellie Hull MD Anesthesia MAC Findings Uterus sounded to 10cm, normal cervix, normal uterine cavity, bilateral tubal ostia visualized. Slightly thickened endometrium, otherwise no major abnormality noted. Good hemostasis at end of case. Fluid deficit: 50ml Description of Procedure Kevyn was taken to the operating room where she was placed under sedation without complications. She was then prepped and draped in the usual sterile fashion in the dorsal lithotomy position with her legs in low Edinson stirrups. A time-out was performed and no perioperative antibiotics were indicated. A bivalve speculum was placed within the vagina where the cervix was easily identified. The anterior lip of the cervix was grasped with a single-tooth tenaculum. The cervix was then serially dilated to allow for the hysteroscope. The hysteroscope was advanced into the uterine cavity with the above findings noted. A curettage was then performed until a good uterine cry was felt throughout the uterus. Good hemostasis was noted. All instruments were removed from the vagina. Sponge, lap, instrument, and needle counts were correct at the end of the procedure. Patient was awoken from anesthesia and taken to recovery with plans of same-day discharge home. Estimated Blood Loss 5 IV Fluids 400 Pathology Yes (endometrial curettings) Complications No immediate complications Condition Stable Disposition Same day [facility] Billing Surgery - Charge Forward: Surgery Billing
[2024-10-11 12:35] VITALS: BP 145/85; PULSE 83; RESP 16; O2SAT 100
[2024-10-11 13:05] VITALS: BP 116/53; PULSE 74; RESP 20
== END 2024-10-11 13:22 | disposition home or self-care (01) ==
PROVIDERS: PCP Nurse Practitioner Family; Visit Provider Obstetrics & Gynecology
PROC: 0U5B8ZZ Destruction of Endometrium, Via Natural or Artificial Opening Endoscopic (ICD-10-PCS; CPT 58563; principal; 2024-10-11 11:30)
DX: N93.9 Abnormal uterine and vaginal bleeding, unspecified (principal); F41.8 Other specified anxiety disorders; E66.9 Obesity, unspecified; Z68.32 Body mass index [BMI] 32.0-32.9, adult
CPT/HCPCS: 58558; 88305; A9270; J1100; J2003; J2250; J2405; J2704; J3010; J7120